=== PATIENT | female | born 1980 | race Caucasian/White ===

== ENCOUNTER 2019-08-25 09:08 | Outpatient (CLI) | payer OTHER, SELFPAY ==
--- NOTE | ~2019-08-25 | XR_ITS ---
EXAMINATION: XR chest 2V 08/25/2019 09:22 INDICATION: Cough and shortness of breath PROCEDURE: 2 view chest COMPARISON: 02/16/2017 FINDINGS: The lungs are clear. The cardiomediastinal silhouette is within normal limits. There are no pleural effusions. There is no pneumothorax suspected. IMPRESSION: 1: NO ACUTE CARDIOPULMONARY DISEASE. Reviewed, dictated and finalized at location A.
== END 2019-08-25 09:09 | disposition home or self-care (01) ==
PROVIDERS: PCP Family Medicine; Visit Provider Family Medicine
DX: R05 Cough (principal); R06.02 Shortness of breath
CPT/HCPCS: 71046

== ENCOUNTER 2020-03-21 08:09 | Emergency (ER) | payer SELFPAY ==
--- NOTE | ~2020-03-21 | XR_ITS ---
XR wrist LT min 3V 03/21/2020 08:26 Indication: Left wrist pain after fall Procedure: 4 views left wrist Comparison: 06/06/2017 Findings: There is a possible nondisplaced distal radial fracture. Mild soft tissue swelling. No fore ign bodies. Carpal bones are intact. No other fracture is identified. Impression: 1: Possible nondisplaced distal radial fracture. Reviewed, dictated and finalized at location B. METER ENGINEER Impression: 1: Possible nondisplaced distal radial fracture.
[2020-03-21 08:15] VITALS: BP 108/74; PULSE 90; RESP 12; TEMP 36.6; O2SAT 100
--- NOTE | 2020-03-21 08:21 | ED.UPPEXIN ---
HPI - Extremity Injury (Upper) General Chief Complaint: Extremity Injury, Upper Stated Complaint: lt hand injury Time Seen by Provider: 03/21/20 08:21 Source: patient and RN notes reviewed Mode of arrival: ambulatory Limitations: no limitations History of Present Illness HPI narrative: 39-year-old female presents with concern for left wrist pain. Reports yesterday she fell while trying to put on a pair of boots, is unsure how she landed, but recalls immediate pain to the wrist. Reports swelling. Reports using Tylenol and ibuprofen, ice, immobilization with no relief. MD complaint: injury to: left and hand Related Data Home Medications Medication Instructions Recorded Confirmed clonazepam 1 mg tablet 1 mg PO TID PRN tablet 08/18/19 03/21/20 paroxetine HCl 20 mg tablet 20 mg PO DAILY 08/18/19 03/21/20 quetiapine 300 mg PO HS 03/21/20 03/21/20 Allergies Allergy/AdvReac Type Severity Reaction Status Date / Time doxycycline AdvReac Vomiting Verified 03/21/20 08:21 Review of Systems Review of Systems: Narrative: CONSTITUTIONAL: Denies malaise, chills, sweats, or fever. CARDIOVASCULAR: Denies chest pain, palpitations RESPIRATORY: Denies cough or dyspnea. SKIN: Denies open skin, laceration, abrasion MUSCULOSKELETAL: Reports right wrist pain and swelling NEUROLOGIC: Denies numbness, weakness All systems reviewed & are unremarkable except as noted in HPI and below PMFSH Social History Social History (Updated 08/18/19 @ 09:26 by Maryam Peterson) Smoking status: Never smoker Second hand tobacco smoke exposure: Yes Alcohol intake: never Substance use: never Substance use type: does not use Gender identity (if verbalized by the patient): Female Comments At time of signature, agree with nursing past medical, surgical, social and family history. There is no relevant family history pertinent to the presenting complaint Exam Narrative: Exam Narrative: GENERAL: Well-appearing, well-nourished, and in no acute distress. HEAD: Normocephalic EYES: PERRLA, conjunctivae clear NECK: Supple. CHEST: Speaks in full sentences. No respiratory distress. HEART: Regular rate and rhythm. Normal and equal peripheral pulses. EXTREMITIES: Left hand and digits of hand have normal strength and sensation. 5/5 strength with digit flexion, extension. Range of motion normal. No clubbing, cyanosis, or edema noted. No tenderness. Skin intact. Normal digital cascade with flexion of fingers, median, ulnar and radial nerve intact. Normal sensation of each side of finger. Can perform 'okay' sign, 'cross over finger test of index and middle fingers' and 'thumbs up' sign. No scissoring. Normal thumb opposition. Good capillary refill and radial pulse. Distal capillary refill less than 3 seconds. Moderate edema to left wrist, radial head tenderness, no ecchymosis or erythema, no induration SKIN: Warn, dry, intact, pink. No rash NEURO: Alert and oriented x3. PSYCH: Normal mood and affect Course Course Emergency Course: Patient is aware of diagnosis, understands and agrees to treatment plan. Anticipatory guidance given. Patient agrees to follow-up as directed and is aware of reasons to seek care at the emergency department. Portions of this record may have been created with voice recognition software Vital Signs Vital signs: Vital Signs Temperature 97.8 F 03/21/20 08:15 Pulse Rate 90 03/21/20 08:15 Respiratory Rate 12 03/21/20 08:15 Blood Pressure 108/74 03/21/20 08:15 Pulse Oximetry 100 03/21/20 08:15 Temperature 97.8 F 03/21/20 08:15 Pulse Rate 90 03/21/20 08:15 Respiratory Rate 12 03/21/20 08:15 Blood Pressure 108/74 03/21/20 08:15 Pulse Oximetry 100 03/21/20 08:15 Reviewed. MDM - Extremity Injury (Upper) MDM Narrative Medical decision making narrative: Patients injury and pain is consistent with musculoskeletal etiology. No signs of neurological or vascular compromise on exam. Compartments and ti
== END 2020-03-21 09:05 | disposition home or self-care (01) ==
PROVIDERS: Emergency Provider Nurse Practitioner; PCP Family Medicine
DX: S52.502A Unspecified fracture of the lower end of left radius, initial encounter for closed fracture (principal); W19.XXXA Unspecified fall, initial encounter; F41.9 Anxiety disorder, unspecified
CPT/HCPCS: 29125; 73110; 99214; A4565; G0463

== ENCOUNTER 2021-04-05 12:34 | Inpatient (IN) | payer MEDICAID, SELFPAY ==
--- NOTE | ~2021-04-05 | XR_ITS ---
EXAMINATION: XR chest 1V portable DATE: 04/08/2021 10:45 INDICATION: Cough. TECHNIQUE: A single frontal view of the chest was obtained. COMPARISON: Chest 2 views 08/25/2019, CT abdomen and pelvis 04/05/2021 FINDINGS: The chest demonstrates clear lungs without pneumonia, pleural effusion, or pneumothorax. Th e heart size is normal. Surgical clips in the right upper quadrant are likely from cholecystectomy. IMPRESSION: 1. No acute cardiopulmonary disease. Reviewed, dictated and finalized at location A. S FORCE DEVELOPER
--- NOTE | ~2021-04-05 | XR_ITS ---
XR chest 2V DATE: 04/12/2021 10:11 INDICATION: Pleuritic pain TECHNIQUE: PA and lateral views COMPARISON: 04/08/2021 portable AP chest FINDINGS: Normal heart size. No hilar or mediastinal enlargement. No pulmonary infiltrate or consolid ation, pleural effusion or pulmonary vascular congestion or pneumothorax. Status post cholecystectomy. Included skeletal structures are unremarkable. IMPRESSION: No active cardiopulmonary disease Status post cholecystectomy Reviewed, dictated and finalized at location B. PRESSURE KETTLE OPERATOR
--- NOTE | ~2021-04-05 | CT_ITS ---
EXAMINATION: CT abdomen pelvis w con DATE: 04/05/2021 18:14 INDICATION: Left flank pain. Burning with urination. TECHNIQUE: Computed tomography (CT) of the abdomen and pelvis was performed with 100 cc Omnipaque 350 intravenous contrast. The dose-length product was 418.15 mGy-cm. Automated exposure control and iter ative reconstruction technique were employed. COMPARISON: CT dated 07/11/2017 FINDINGS: Lung bases are unremarkable. Heart size normal. No significant pleural or pericardial effus ion. No significant vascular abnormality. There is mild bilateral inguinal lymphadenopathy, largest l eft inguinal lymph node measures 1.8 x 1.3 cm. The liver contains a stable 12 mm hemangioma anterior to the intrahepatic IVC. There is splenomegaly. The pancreas, adrenal glands and kidneys are unremarkable. No ureteral stones or hydronephrosis. Aníbal dder is unremarkable. Status post cholecystectomy. Nonobstructive bowel gas pattern. The appendix is likely surgically absent. No abnormal pelvic masses or fluid collections. No free air or free fluid. IMPRESSION: 1. No acute abdominal abnormality. 2: Mild bilateral inguinal lymphadenopathy, likely reactive. Reviewed, dictated and finalized at location A. ER SKATE REPAIRER
--- NOTE | ~2021-04-05 | US_ITS ---
EXAMINATION: US renal BI EXAM DATE: 04/06/2021 08:51 INDICATION: Left flank pain TECHNIQUE: Multiple grayscale and Doppler images of the kidneys were obtained (by a technologist who performed the scan) and subsequently reviewed. There is no prior study for comparison. FINDINGS: Right kidney: There is normal contour and echogenicity. It measures 9.4 x 4.6 x 4.4 centimeters. Th ere are no focal renal lesions identified. There is no hydronephrosis. Left kidney: There is normal contour and echogenicity. It measures 10.6 x 3.9 x 4.2 centimeters. Th ere are no focal renal lesions identified. There is no hydronephrosis. Bladder unremarkable. IMPRESSION: 1. Sonographically unremarkable kidneys. Reviewed, dictated and finalized at location B. ATRIC ONCOLOGY NURSE
--- NOTE | ~2021-04-05 | CT_ITS ---
EXAMINATION: CT brain wo con DATE: 04/08/2021 13:37 INDICATION: Headache. TECHNIQUE: Computed tomography (CT) of the head was performed without intravenous contrast. The mA wa s adjusted according to patient size. Iterative reconstruction technique was employed. The dose-lengt h product was 605.33 mGy-cm. COMPARISON: None FINDINGS: There is no intracranial hemorrhage, acute infarction, or abnormal intracranial mass lesion . The ventricles are normal in size. There is mild mucosal thickening in the paranasal sinuses. The m astoid air cells are normal. The orbits are normal. IMPRESSION: 1. Normal brain. Reviewed, dictated and finalized at location A. ICE OR WORK DISPATCHER CHIEF IMPRESSION: 1. Normal brain.
--- NOTE | ~2021-04-05 | US_ITS ---
EXAMINATION: US right upper quadrant DATE: 04/06/2021 08:52 INDICATION: Right upper quadrant pain TECHNIQUE: Multiple grayscale and Doppler ultrasound images of the abdomen were obtained. COMPARISON: 04/05/2021 FINDINGS: The head, body, and tail of the pancreas are normal. The liver is normal with normal echoge nicity and echotexture. No surface nodularity. Normal hepatopetal flow in the main portal vein. The g allbladder is absent. The normal common bile duct measures 3 mm. IMPRESSION: 1. No sonographic correlate for the patient's symptoms. Reviewed, dictated and finalized at location A. INUOUS WASHER OPERATOR
[2021-04-05 12:44] VITALS: BP 127/92; PULSE 110; RESP 16; TEMP 37.2; O2SAT 99
[2021-04-05 14:59] VITALS: BP 123/85; PULSE 116; O2SAT 98
--- NOTE | 2021-04-05 17:00 | ED.FEMALEGU ---
HPI - Female Genitourinary General Chief complaint: Urogenital-Female Stated complaint: low back pain/burning with urination Time Seen by Provider: 04/05/21 16:39 Source: patient Mode of arrival: ambulatory Limitations: no limitations History of Present Illness HPI Narrative: This is a 40 year old female that presents to the ER for left flank pain x 3 days. Associated with fever, dysuria, abdominal pain, nausea and vomiting. Reports she has seen some blood on the tissue when she wipes. Denies chest pain, or shortness of breath. Related Data Home Medications Medication Instructions Recorded Confirmed clonazepam 1 mg tablet 1 mg PO TID PRN tablet 08/18/19 03/23/20 paroxetine HCl 20 mg tablet 20 mg PO DAILY 08/18/19 03/23/20 quetiapine 300 mg PO HS 03/21/20 03/23/20 lorazepam [Ativan] 2 mg PO BID PRN 04/05/21 04/05/21 quetiapine [Seroquel] 200 mg PO HS 04/05/21 04/05/21 Allergies Allergy/AdvReac Type Severity Reaction Status Date / Time doxycycline AdvReac Vomiting Verified 04/05/21 20:53 Review of Systems Review of Systems: CONSTITUTIONAL: Reports fever CARDIOVASCULAR: Denies chest pain RESPIRATORY: Denies dyspnea. GASTROINTESTINAL: Reports abdominal pain, nausea, vomiting GENITOURINARY: Reports dysuria. Denies hematuria. All systems reviewed & are unremarkable except as noted in HPI and below PMFSH Past Medical History Medical History (Updated 04/05/21 @ 20:52 by Ana Paula Tinajero PA-C) Cough History of pancreatitis (~2014) Malaise Nondisplaced fracture of distal end of right radius SOB (shortness of breath) Surgical History Surgical History History of appendectomy (~1999) History of cholecystectomy (~2013) Hx of tonsillectomy (~1987) Social History Social History Smoking status: Never smoker Second hand tobacco smoke exposure: Yes Alcohol intake: never Substance use: never Substance use type: does not use Gender identity (if verbalized by the patient): Female Exam Narrative: GENERAL: Well-appearing, well-nourished, and in no acute distress. HEAD: Normocephalic, atraumatic. EYES: EOMI. CHEST: Clear to auscultation. No respiratory distress. No wheezes rales or rhonchi HEART: Regular rate and rhythm. No murmur heard. Normal peripheral pulses. ABDOMEN: Soft, nondistended, normal active bowel sounds. Tender to palpation in the LLQ, without guarding. Left sided CVA tenderness EXTREMITIES: Normal range of motion. No edema. SKIN: Warm, dry, no rash. NEURO: No focal deficits. Alert and oriented x3. PSYCH: Normal mood and affect Course Consultations Consultation #1: Spoke with hospitalist about patient and workup who accepts admission Date: 04/05/21 Time: 20:02 Vital Signs Vital signs: Vital Signs Temperature 98.9 F 04/05/21 12:44 Pulse Rate 110 H 04/05/21 12:44 Respiratory Rate 16 04/05/21 12:44 Blood Pressure 127/92 H 04/05/21 12:44 Pulse Oximetry 99 04/05/21 12:44 Temperature 99.8 F H 04/05/21 17:45 Pulse Rate 91 04/05/21 18:33 Respiratory Rate 17 04/05/21 18:33 Blood Pressure 113/63 04/05/21 18:33 Pulse Oximetry 99 04/05/21 18:33 MDM - Female Genitourinary MDM Narrative Medical decision making narrative: Patient presents to the emergency department for left flank pain present over the last 3 days. Associated with fever, nausea and vomiting. Mildly tachycardic upon arrival, afebrile. Vitals are stable. CBC is without leukocytosis. Metabolic panel significant for transaminitis. Alk phos also elevated to 299. Lipase is normal. Hepatitis panel was sent. Bedside test is negative. CT scan of the abdomen and pelvis without acute findings. Patient will be admitted for further treatment of pyelonephritis with IV antibiotics. I did speak with Dr. Cannon about transaminitis. Would like hepatitis panel ordered. Spoke with hospitalist
[2021-04-05 17:23] LABS: Basophils Percent Auto 0.1 % (0.2-1.2); Hematocrit 39.6 % (37.0-47.0); Hemoglobin 13.7 g/dL (12.0-15.0); Immature Granulocyte Absolute 0.01 K/mm3 (0.00-0.031); Immature Granulocyte Percent A 0.1 % (0-0.5); Lymphocytes Absolute Auto 1.11 K/mm3 (0.9-3.2); Lymphocytes Percent Auto 16.1 % (18.3-44.2); Mean Corpuscular HGB Conc 34.6 g/dl (32-36); Mean Corpuscular Hemoglobin 31.8 pg (26-34); Mean Corpuscular Volume 91.9 fl (80-100); Mean Platelet Volume 9.8 fl (7.4-10.4); Monocytes Absolute Auto 0.5 K/mm3 (0.1-0.6); Monocytes Percent Auto 6.7 % (2.6-8.5); Neutrophils Absolute Auto 5.3 K/mm3 (1.3-6.7); Platelet Count Result 257 k/mm3 (150-375); Red Blood Count 4.31 M/mm3 (4.2-5.4); Red Cell Distribution Width 13.9 % (11.5-14.5); White Blood Count 6.9 K/mm3 (4.5-10.0)
[2021-04-05] MEDS: SODIUM CHLORIDE 0.9% IV 1,000 ML 999 ML IV CONT (17:28)
[2021-04-05 17:33] LABS: Alanine Aminotransferase 525 U/L (4-35); Alkaline Phosphatase 299 U/L (38-126); Anion Gap 10 mmol/L (8-16); Aspartate Amino Transferase 350 U/L (14-36); Bilirubin,Total 0.9 mg/dL (0.2-1.3); Blood Urea Nitrogen 8 mg/dL (7-17); Calcium 9.5 mg/dL (8.4-10.2); Carbon Dioxide 22 mmol/L (22-30); Chloride 102 mmol/L (98-107); Estimated CRCL calculation 69 ml/min; Estimated Glomerular Filt Rate > 60; Glucose 103 mg/dL (65-110); Lipase 45 U/L (23-300); Potassium 3.6 mmol/L (3.4-5.0); Sodium 134 mmol/L (137-145)
[2021-04-05 17:38] LABS: Add Urine Microscopic? YES; Appearance Urine Cloudy (Clear); Bacteria Urine Trace /hpf; Bilirubin Urine Negative (Negative); Blood Urine 1+ (Negative); Color Urine Yellow (Yellow); Glucose Urine UA Negative (Negative); Ketones Urine Negative (Negative); Leukocyte Esterase Ur 3+ LEU/UL (Negative); Mucus Urine Rare /lpf; Nitrate Urine Negative (Negative); Protein Urine 2+ mg/dL (Negative); RBC Urine >75 /hpf (0-2); Specific Grav Ur 1.015 (1.001-1.035); Squamous Epithelial Cell Urine Many /hpf (Few); Urobilinogen Urine Negative mg/dL (<2.0); WBC Urine >75 /hpf
[2021-04-05 17:45] VITALS: BP 112/72; PULSE 98; RESP 16; TEMP 37.7; O2SAT 98
[2021-04-05 18:33] VITALS: BP 113/63; PULSE 91; RESP 17; O2SAT 99
[2021-04-05] MEDS: ONDANSETRON INJ 4 MG/2 ML VIAL IV PUSH (18:56)
[2021-04-05] MEDS: KETOROLAC 30 MG/ML VIAL (*BKC) IV PUSH (18:56)
[2021-04-05 20:50] VITALS: BP 98/70; PULSE 82; RESP 12; O2SAT 100
[2021-04-05] MEDS: SODIUM CHLORIDE 0.9% IV 1,000 ML 125 ML IV CONT (20:51)
[2021-04-05 21:11] LABS: Hepatitis B Surface Antigen Negative (Negative)
[2021-04-05 21:17] LABS: HAV RESULT Negative (Negative); Hepatitis B Core IgM Result Negative (Negative)
[2021-04-05 21:28] LABS: Hepatitis C Virus Antibody Negative (Negative)
[2021-04-05] MEDS: LORazepam INJ (*CRX) 2 MG/ML VIAL 1 MG IV PUSH (21:30)
[2021-04-05] MEDS: QUEtiapine FUMARATE 100 MG TABLET 200 MG PO (22:45)
--- NOTE | 2021-04-05 23:53 | PC.NURSE ---
This patient, Melissa Hebert, was admitted to 3 [facility] Surg Room 316-01 @2340. Patient/family oriented to hospital policies and general routines including ID bracelet, bed and alarms, visiting hours, pain management, procedures, bathroom and other care routines, personal items, smoking policy, room service/diet, and visiting hours. Information on how to activate the Rapid Response Team has been discussed. Patient/Family are encouraged to report perceived risks to care and to ask questions if they do not understand what they are told or what they should do.
[2021-04-06 00:02] VITALS: BP 104/71; PULSE 75; RESP 18; TEMP 36.8; O2SAT 97; BMI 27.6
[2021-04-06 00:03] VITALS: BMI 27.6
[2021-04-06] MEDS: KETOROLAC 30 MG/ML VIAL (*BKC) 15 MG IV PUSH (01:31)
[2021-04-06] MEDS: SODIUM CHLORIDE 0.9% IV 1,000 ML 125 ML IV CONT ×3 (05:19→20:22)
[2021-04-06 05:27] VITALS: BP 110/78; PULSE 85; RESP 18; TEMP 36.6; O2SAT 93
--- NOTE | 2021-04-06 05:58 | PM.IMHP ---
H&P: HPI History of Present Illness Date/Time: 04/06/21 05:58 Chief Complaint: Fever abdominal pain Narrative: This is a 40 year old female that presents to the ER for left flank pain x 4 days there is associated fever dysuria and lower abdominal and left-sided abdominal pain. Also associated nausea and vomiting and not feeling well. She went to urgent care yesterday with the symptoms and was referred to the hospital for further evaluation. She denies any chest pain cough or shortness of breath. Was tachycardic upon arrival but afebrile. CBC with normal WBC count normal BMP bedside test was negative. Lipase came back neck and normal liver panel showed transaminitis with elevated alkaline phosphatase of 229. CT abdomen and pelvis however did not show any acute findings however clinically she was diagnosed with pyelonephritis and hands the getting admitted for IV antibiotic therapy. Review of Systems Review of Systems: - CONSTITUTIONAL: Denies weight loss, reports fever and chills. - HEENT: Denies changes in vision and hearing - RESPIRATORY: Denies SOB and cough. - CV: Denies palpitations and CP. - GI: Reports abdominal pain, nausea, vomiting and denies diarrhea. - : Reports dysuria and urinary frequency. - MSK: Denies myalgia and joint pain. - SKIN: Denies rash and pruritus. - NEUROLOGICAL: Denies headache and syncope. - PSYCHIATRIC: Denies recent changes in mood. Denies anxiety and depression. All systems reviewed & are unremarkable except as noted in HPI and below Constitutional: Constitutional: Reports fatigue and Reports weakness Neurologic: Reports weakness Endocrine: Endocrine: Reports fatigue COUNTS INCLUDE 234 BEDS AT THE [facility] Past Medical History Medical History (Updated 04/06/21 @ 06:04 by Reza Mccauley MD) Cough History of pancreatitis (~2014) Malaise Nondisplaced fracture of distal end of right radius SOB (shortness of breath) Surgical History Surgical History History of appendectomy (~1999) History of cholecystectomy (~2013) Hx of tonsillectomy (~1987) Social History Social History Smoking status: Never smoker Second hand tobacco smoke exposure: Yes Alcohol intake: never Substance use: former Substance use type: marijuana Other substance usage details: irregular use Gender identity (if verbalized by the patient): Female Spiritual care concerns: No Meds Home Medications and Allergies Home Medications Medication Instructions Recorded Confirmed Type clonazepam 1 mg tablet 1 mg PO TID PRN tablet 08/18/19 04/06/21 History paroxetine HCl 20 mg tablet 20 mg PO DAILY 08/18/19 04/06/21 History ibuprofen 800 mg PO Q6H PRN #30 tablet 03/21/20 04/06/21 Rx lorazepam [Ativan] 2 mg PO BID PRN 04/05/21 04/06/21 History quetiapine [Seroquel] 200 mg PO HS 04/05/21 04/06/21 History Allergies Allergy/AdvReac Type Severity Reaction Status Date / Time doxycycline AdvReac Vomiting Verified 04/06/21 00:15 Vital Signs Vital Signs - 24 hr 04/05/21 12:44 04/05/21 14:59 04/05/21 17:45 Temperature 98.9 F 99.8 F H Pulse Rate 110 H 116 H 98 Respiratory Rate 16 16 Blood Pressure 127/92 H 123/85 112/72 Pulse Oximetry 99 98 98 04/05/21 18:33 04/05/21 20:50 04/06/21 00:02 Temperature 98.3 F Pulse Rate 91 82 75 Respiratory Rate 17 12 18 Blood Pressure 113/63 98/70 L 104/71 Pulse Oximetry 99 100 97 04/06/21 05:27 Temperature 97.8 F Pulse Rate 85 Respiratory Rate 18 Blood Pressure 110/78 Pulse Oximetry 93 Exam Narrative: GENERAL: Ill-looking, thin built, not in acute distress. HEAD: Normocephalic, atraumatic. EYES: EOMI. CHEST: Clear to auscultation. No respiratory distress. No wheezes rales or rhonchi HEART: Regular rate and rhythm. No murmur heard. Normal peripheral pulses. ABDOMEN: Soft, nondistended, hypoactive bowel sounds. Tender to palpation in
[2021-04-06] MEDS: HYDROmorphone HCL INJ (*CRX) 1 MG/ML SYR 0.5 MG IV PUSH ×5 (06:22→20:14)
[2021-04-06 07:03] LABS: Eosinophils Percent Auto 0.8 % (0-4.4); Hematocrit 33.9 % (37.0-47.0); Hemoglobin 11.3 g/dL (12.0-15.0); Immature Granulocyte Absolute 0.01 K/mm3 (0.00-0.031); Immature Granulocyte Percent A 0.4 % (0-0.5); Lymphocytes Percent Auto 22.6 % (18.3-44.2); Mean Corpuscular HGB Conc 33.3 g/dl (32-36); Mean Corpuscular Volume 93.1 fl (80-100); Mean Platelet Volume 9.4 fl (7.4-10.4); Monocytes Absolute Auto 0.3 K/mm3 (0.1-0.6); Monocytes Percent Auto 12.1 % (2.6-8.5); Neutrophils Absolute Auto 1.7 K/mm3 (1.3-6.7); Neutrophils Percent Auto 64.1 % (45.5-73.1); Platelet Count Result 157 k/mm3 (150-375); Red Blood Count 3.64 M/mm3 (4.2-5.4); Red Cell Distribution Width 14.2 % (11.5-14.5); White Blood Count 2.7 K/mm3 (4.5-10.0)
[2021-04-06 07:13] LABS: Alanine Aminotransferase 393 U/L (4-35); Albumin Level 3.5 g/dL (3.5-5.1); Alkaline Phosphatase 216 U/L (38-126); Anion Gap 11 mmol/L (8-16); Aspartate Amino Transferase 330 U/L (14-36); Bilirubin,Total 1.1 mg/dL (0.2-1.3); Blood Urea Nitrogen 7 mg/dL (7-17); Carbon Dioxide 22 mmol/L (22-30); Chloride 107 mmol/L (98-107); Estimated CRCL calculation 88 ml/min; Estimated Glomerular Filt Rate > 60; Glucose 91 mg/dL (65-110); Potassium 3.4 mmol/L (3.4-5.0); Sodium 140 mmol/L (137-145)
[2021-04-06 07:24] LABS: Acetaminophen < 10 ug/mL (10-30); Salicylate < 1.0 mg/dL (2-20)
[2021-04-06] MEDS: ONDANSETRON HCL ODT 4 MG TABLET PO (09:20)
[2021-04-06] MEDS: PARoxetine 20 MG TABLET PO (09:20)
[2021-04-06] MEDS: LORazepam (*CRX) 1 MG TABLET 2 MG PO (09:29)
--- NOTE | 2021-04-06 13:54 | PM.IMPN ---
Progress Note: A&P Assessment and Plan (1) Pyelonephritis: Code(s): N12 - Tubulo-interstitial nephritis, not specified as acute or chronic Status: Acute Assessment and Plan: Clinical diagnosis of pyelonephritis due to significant abdominal pain with UTI however not noted on imaging -continue ceftriaxone, await urine culture -continue IV fluids due to continuous vomiting -blood cultures were not ordered on admission, will order -abdominal pelvis CT, renal ultrasound, and right upper quadrant ultrasound shows no abnormalities -await urine culture and adjust medications as indicated -will add Pyridium for pain -patient states she is not sexually active and has no vaginal irritation or pain. Last menstrual period earlier this month. (2) Transaminitis: Code(s): R74.01 - Elevation of levels of liver transaminase levels Status: Acute Assessment and Plan: Likely due to acute illness -CT of the abdomen pelvis and right upper quadrant ultrasound does not show any abnormalities -patient continues to have nausea vomiting but I suspect this is due to above -if the UTI improves and the patient still has continuous nausea vomiting may consider a HIDA scan although I do not think this will be necessary -hepatitis screen negative (3) Sepsis: Code(s): A41.9 - Sepsis, unspecified organism Status: Acute Assessment and Plan: Secondary to UTI with evidence of hypotension and tachycardia -blood cultures were not ordered on admission, will order -continue ceftriaxone (4) Anxiety: Code(s): F41.9 - Anxiety disorder, unspecified Status: Acute Assessment and Plan: Will transition Ativan oral to IV while she is vomiting -continue Seroquel -check EKG for QTC since she required Zofran as well (5) Nausea & vomiting: Code(s): R11.2 - Nausea with vomiting, unspecified Status: Acute Assessment and Plan: As above -will try scopolamine patch (6) Leukopenia: Code(s): D72.819 - Decreased white blood cell count, unspecified Status: Acute Assessment and Plan: Likely due to above illness -viral etiology seems less likely but only may be considered if her liver enzymes do not improve with UTI treatment Time Spent With Patient Time with patient: 25 - 35 minutes Subjective Date/time seen: 04/06/21 13:54 Interval history: Pt is a 40-year-old female here for significant UTI and sepsis. Patient was seen today and states she does not feel well. She throws up everything that she eats and she continues to have left-sided abdominal pain. She has no diarrhea, constipation, shortness of breath, cough or leg swelling. She says that she has significant anxiety and is not able to keep her medications down. When she has anxiety she has chest pain that is achy in the middle of her chest. This happens when she throws up or when she gets really anxious and then goes away. This is not a new thing for her. She is usually typically active without chest pain during exercise etc Review of Systems Review of Systems: All systems reviewed & are unremarkable except as noted in HPI and below Exam Narrative: General: Well developed well nourished patient in NAD HEENT: normocephalic Neck: supple Neuro: Alert and oriented x4 CV:RRR Resp:CTA Abd: Soft, non distended. Pain to palpation worse to the left flank and left lower quadrant. Positive bowel sounds Extremities: No swelling, erythema, or pain to palpation. Objective Data Vital Signs Vital Signs: Vital Signs - 24 hr 04/05/21 14:59 04/05/21 17:45 04/05/21 18:33 Temperature 99.8 F H Pulse Rate 116 H 98 91 Respiratory Rate 16 17 Blood Pressure 123/85 112/72 113/63 Pulse Oximetry 98 98 99 04/05/21 20:50 04/06/21 00:02 04/06/21 05:27 Temperature 98.3 F 97.8 F Pulse Rate 82 75 85 Respiratory Rate 12 18 18 Blood Pressure 98/70 L 104/71 110/78 Pulse Oximetry 100 97
[2021-04-06 14:00] VITALS: BP 107/73; PULSE 99; RESP 16; TEMP 36.8; O2SAT 97
--- NOTE | 2021-04-06 14:04 | ECG_ITS ---
Measurements Intervals [place] Rate: 87 P: 49 WI: 168 QRS: 84 QRSD: 82 T: 61 QT: 393 QTc: 475 Interpretive Statements SINUS RHYTHM LOW QRS VOLTAGE IN PRECORDIAL LEADS BORDERLINE ECG Electronically Signed On 04-06-2021 15:50:03 DRAFTER TOOL DESIGN by Marcellus Vasquez D.O.
[2021-04-06 14:33] LABS: Lactic Acid Reflex 0.6 mmol/L (0.7-2.1)
[2021-04-06 14:36] LABS: CRP 1.5 mg/dL (<1.0)
[2021-04-06] MEDS: SCOPOLAMINE 1.5 MG PATCH TRANSDERM (15:01)
[2021-04-06] MEDS: PANTOPRAZOLE SODIUM IV 40 MG VIAL IV PUSH (15:47)
[2021-04-06] MEDS: LORazepam INJ (*CRX) 2 MG/ML VIAL IV PUSH (15:47)
[2021-04-06] MEDS: PHENAZOPYRIDINE HCL 100 MG TABLET 200 MG PO (17:02)
[2021-04-06] MEDS: QUEtiapine FUMARATE 100 MG TABLET 200 MG PO (20:13)
[2021-04-06 22:00] VITALS: BP 110/56; PULSE 110; RESP 18; TEMP 36.7; O2SAT 95
[2021-04-07] MEDS: HYDROmorphone HCL INJ (*CRX) 1 MG/ML SYR 0.5 MG IV PUSH ×6 (02:27→19:55)
[2021-04-07] MEDS: LORazepam INJ (*CRX) 2 MG/ML VIAL IV PUSH ×3 (03:25→19:50)
[2021-04-07] MEDS: SODIUM CHLORIDE 0.9% IV 1,000 ML 125 ML IV CONT ×3 (03:25→19:55)
[2021-04-07 05:57] VITALS: BP 101/60; PULSE 98; RESP 18; TEMP 36.9; O2SAT 94
[2021-04-07 07:16] LABS: Alanine Aminotransferase 404 U/L (4-35); Albumin Level 3.5 g/dL (3.5-5.1); Alkaline Phosphatase 304 U/L (38-126); Anion Gap 9 mmol/L (8-16); Aspartate Amino Transferase 373 U/L (14-36); Bilirubin,Total 1.1 mg/dL (0.2-1.3); Blood Urea Nitrogen 3 mg/dL (7-17); Calcium 8.1 mg/dL (8.4-10.2); Carbon Dioxide 23 mmol/L (22-30); Chloride 103 mmol/L (98-107); Estimated CRCL calculation 102 ml/min; Estimated Glomerular Filt Rate > 60; Glucose 97 mg/dL (65-110); Potassium 3.6 mmol/L (3.4-5.0); Sodium 135 mmol/L (137-145)
[2021-04-07 07:25] LABS: Hematocrit 32.7 % (37.0-47.0); Hemoglobin 10.8 g/dL (12.0-15.0); Immature Granulocyte Absolute 0.01 K/mm3 (0.00-0.031); Immature Granulocyte Percent A 0.3 % (0-0.5); Lymphocytes Percent Auto 24.9 % (18.3-44.2); Mean Corpuscular Hemoglobin 30.6 pg (26-34); Mean Corpuscular Volume 92.6 fl (80-100); Mean Platelet Volume 9.8 fl (7.4-10.4); Monocytes Absolute Auto 0.3 K/mm3 (0.1-0.6); Monocytes Percent Auto 7.2 % (2.6-8.5); Neutrophils Absolute Auto 2.5 K/mm3 (1.3-6.7); Neutrophils Percent Auto 67.6 % (45.5-73.1); Platelet Count Result 176 k/mm3 (150-375); Red Blood Count 3.53 M/mm3 (4.2-5.4); Red Cell Distribution Width 14.2 % (11.5-14.5); White Blood Count 3.6 K/mm3 (4.5-10.0)
[2021-04-07] MEDS: IBUPROFEN 400 MG TABLET 800 MG PO (08:33)
[2021-04-07] MEDS: PHENAZOPYRIDINE HCL 100 MG TABLET 200 MG PO ×3 (08:33→16:49)
[2021-04-07] MEDS: PANTOPRAZOLE SODIUM IV 40 MG VIAL IV PUSH (08:34)
[2021-04-07] MEDS: PARoxetine 20 MG TABLET PO (08:34)
[2021-04-07 12:06] VITALS: BMI 27.6
--- NOTE | 2021-04-07 12:26 | PM.IMPN ---
Progress Note: A&P Assessment and Plan (1) Pyelonephritis: Code(s): N12 - Tubulo-interstitial nephritis, not specified as acute or chronic Status: Acute Assessment and Plan: Clinical diagnosis of pyelonephritis due to significant abdominal pain with UTI however not noted on imaging -continue ceftriaxone, await urine culture -continue IV fluids due to continuous vomiting -blood cultures were not ordered on admission, will order -abdominal pelvis CT, renal ultrasound, and right upper quadrant ultrasound shows no abnormalities -await urine culture and adjust medications as indicated (2) Transaminitis: Code(s): R74.01 - Elevation of levels of liver transaminase levels Status: Acute Assessment and Plan: Likely due to acute illness GI consult Patient had cholecystectomy Bilateral pain is not elevated goes against obstructive bile duct disease -CT of the abdomen pelvis and right upper quadrant ultrasound does not show any abnormalities -probable tick-borne disease added doxycycline patient has reaction in the past from doxycycline with vomiting I discussed with the patient in detail will give Zofran ordered Lyme disease and ehrlichiosis titer (3) Sepsis: Code(s): A41.9 - Sepsis, unspecified organism Status: Acute Assessment and Plan: Secondary to UTI possible tick-borne disease with evidence of hypotension and tachycardia -follow-up blood culture -continue ceftriaxone doxycycline (4) Anxiety: Code(s): F41.9 - Anxiety disorder, unspecified Status: Acute Assessment and Plan: Will transition Ativan oral to IV while she is vomiting -continue Seroquel l (5) Nausea & vomiting: Code(s): R11.2 - Nausea with vomiting, unspecified Status: Acute Assessment and Plan: As above -will try scopolamine patch (6) Leukopenia: Code(s): D72.819 - Decreased white blood cell count, unspecified Status: Acute Assessment and Plan: Likely due to above illness -viral etiology seems less likely but only may be considered if her liver enzymes do not improve with UTI treatment Subjective Date/time seen: 04/07/21 12:26 Interval history: Patient seen and examined Patient presented to the hospital with abdominal pain fever dysuria headache denies photophobia or neck rigidity patient [place] to the [place] and she walks her dog daily in the area patient denies tick bites Patient feels weak still complains of nausea abdominal pain Patient denies fever headache chest pain shortness of breath I am seeing the patient for abdominal pain Exam Narrative: Alert Chest no wheeze crackles Abdomen generalized tenderness no rebound no guarding Neck No neck stiffness CVS S1 + S2 Neuro exam nonfocal Lower extremity edema Objective Data Vital Signs Vital Signs: Vital Signs - 24 hr 04/06/21 14:00 04/06/21 22:00 04/07/21 05:57 Temperature 98.3 F 98.0 F 98.5 F Pulse Rate 99 110 H 98 Respiratory Rate 16 18 18 Blood Pressure 107/73 110/56 L 101/60 Pulse Oximetry 97 95 94 Intake/Output Intake/Output: Intake & Output 04/04/21 04/05/21 04/06/21 04/07/21 23:59 23:59 23:59 23:59 Intake Total 1150 3730 2450 Output Total 400 Balance 1150 3730 2050 Meds/Results Medications: Active Medications Generic Name Dose Route Start Last Admin Trade Name Freq PRN Reason Stop Dose Admin Hydromorphone HCl 0.5 mg 04/06/21 06:02 04/07/21 09:00 Hydromorphone Hcl Inj (*Crx) 1 Mg/Ml Syr IV PUSH 0.5 mg Q3H PRN Administration Pain Rated 7-10 Sodium Chloride 1,000 mls @ 125 mls/hr 04/05/21 20:35 04/07/21 10:59 Normal Saline Iv IV CONT 125 mls/hr .Q8H PIYUSH Administration Ceftriaxone Sodium/Dextrose 1 gm in 50 mls @ 100 mls/hr 04/06/21 18:00 04/06/21 17:35 Rocephin 1 Gm/D5w 50 Ml IVPB Infused Q24H PIYUSH Infusion Doxycycline Hyclate 100 mg/ 100 mls @ 100 mls/hr 04/07/21 12:00 Sodium Ch
[2021-04-07 14:00] VITALS: BP 100/72; PULSE 90; RESP 14; TEMP 36.3; O2SAT 96
[2021-04-07] MEDS: DOXYCYCLINE IV 100 MG in SODIUM CHLORIDE 0.9% IV 100 ML IVPB ×2 (15:05→23:28)
[2021-04-07] MEDS: ONDANSETRON HCL ODT 4 MG TABLET PO (15:05)
[2021-04-07] MEDS: QUEtiapine FUMARATE 100 MG TABLET 200 MG PO (19:51)
[2021-04-07 22:00] VITALS: BP 105/65; PULSE 80; RESP 16; TEMP 36.1; O2SAT 93
[2021-04-08] MEDS: HYDROmorphone HCL INJ (*CRX) 1 MG/ML SYR 0.5 MG IV PUSH ×2 (00:34→05:01)
[2021-04-08] MEDS: SODIUM CHLORIDE 0.9% IV 1,000 ML 125 ML IV CONT (05:07)
[2021-04-08 06:00] VITALS: BP 120/78; PULSE 114; RESP 22; TEMP 37.3; O2SAT 91
[2021-04-08] MEDS: LORazepam INJ (*CRX) 2 MG/ML VIAL IV PUSH (06:15)
[2021-04-08] MEDS: PHENAZOPYRIDINE HCL 100 MG TABLET 200 MG PO ×3 (08:07→16:55)
[2021-04-08] MEDS: PARoxetine 20 MG TABLET PO (08:08)
--- NOTE | 2021-04-08 10:21 | PM.IMPN ---
Progress Note: A&P Assessment and Plan (1) Pyelonephritis: Code(s): N12 - Tubulo-interstitial nephritis, not specified as acute or chronic Status: Acute Assessment and Plan: Clinical diagnosis of pyelonephritis due to significant abdominal pain with UTI however not noted on imaging -continue Ceftriaxone, await urine culture -continue hydration g -blood cultures r -abdominal pelvis CT, renal ultrasound, and right upper quadrant ultrasound shows no abnormalities -await urine culture and adjust medications as indicated (2) Transaminitis: Code(s): R74.01 - Elevation of levels of liver transaminase levels Status: Acute Assessment and Plan: Likely due to acute illness GI consult Patient had cholecystectomy Bilateral pain is not elevated goes against obstructive bile duct disease -CT of the abdomen pelvis and right upper quadrant ultrasound does not show any abnormalities -probable tick-borne disease added doxycycline patient has reaction in the past from doxycycline with vomiting I discussed with the patient in detail will give Zofran ordered Lyme disease and ehrlichiosis titer pending (3) Sepsis: Code(s): A41.9 - Sepsis, unspecified organism Status: Acute Assessment and Plan: Secondary to UTI possible tick-borne disease with evidence of hypotension and tachycardia -follow-up blood culture -continue Keflex doxycycline (4) Anxiety: Code(s): F41.9 - Anxiety disorder, unspecified Status: Acute Assessment and Plan: Xanax -continue Seroquel l (5) Nausea & vomiting: Code(s): R11.2 - Nausea with vomiting, unspecified Status: Acute Assessment and Plan: Improved scopolamine patch (6) Leukopenia: Code(s): D72.819 - Decreased white blood cell count, unspecified Status: Acute Assessment and Plan: Likely due to above illness Monitor CBC Subjective Date/time seen: 04/08/21 10:21 Interval history: Patient seen and examined Patient presented to the hospital with abdominal pain fever dysuria headache denies photophobia or neck rigidity patient lives close to the [place] and she walks her dog daily in the area patient denies tick bites Nausea vomiting has improved patient has tolerated diet Doxycycline was started yesterday Pending GI evaluation No sign of acute meningitis But patient still complains of headache Neurology was consulted will follow Neurology recommendation if lumbar puncture is needed Patient denies fever chest pain shortness of breath I am seeing the patient for abdominal pain Exam Narrative: Alert Chest no wheeze crackles Abdomen generalized tenderness no rebound no guarding better than yesterday Neck No neck stiffness CVS S1 + S2 Positive small area of skin rash in the upper part of the chest Neuro exam nonfocal Lower extremity negative edema Objective Data Vital Signs Vital Signs: Vital Signs - 24 hr 04/07/21 14:00 04/07/21 22:00 04/08/21 06:00 Temperature 97.4 F L 96.9 F L 99.2 F Pulse Rate 90 80 114 H Respiratory Rate 14 16 22 H Blood Pressure 100/72 105/65 120/78 Pulse Oximetry 96 93 91 Intake/Output Intake/Output: Intake & Output 04/05/21 04/06/21 04/07/21 04/08/21 23:59 23:59 23:59 23:59 Intake Total 1150 3730 3670 1120 Output Total 400 Balance 1150 3730 3270 1120 Meds/Results Medications: Active Medications Generic Name Dose Route Start Last Admin Trade Name Freq PRN Reason Stop Dose Admin Alprazolam 0.5 mg 04/08/21 09:47 Alprazolam (*Crx) 0.5 Mg Tablet PO TID PRN Anxiety Cephalexin HCl 500 mg 04/08/21 14:00 Cephalexin 500 Mg Capsule PO Q8HR PIYUSH Doxycycline Hyclate 100 mg 04/08/21 21:00 Doxycycline Hyclate 100 Mg Tablet PO Q12HR PIYUSH Hydromorphone HCl 2 mg 04/08/21 10:10 Hydromorphone Hcl (*Crx) 1 Mg Tablet PO Q4H PRN Pain Rated 7-10 Sodium Chloride 1,000 mls @ 125 mls/hr 1
[2021-04-08] MEDS: HYDROmorphone HCL (*CRX) 1 MG TABLET 2 MG PO ×3 (10:23→18:07)
--- NOTE | 2021-04-08 10:32 | WPDGICN ---
Assessment and Plan Assessment and plan (1) Transaminitis: Code(s): R74.01 - Elevation of levels of liver transaminase levels Status: Acute Assessment and Plan: Elevated serum transaminases appear to correlate with right upper quadrant abdominal pain. Clinically she appears to have hepatitis. Viral serologies are negative so far. Additional lab testing will be obtained. Initial impression patient is this likely is related to her sepsis from the kidney infection. Alternate etiologies include the possibility of medication effect. Continue to monitor LFTs at this time with supportive care should they worsen or fail to improve at some point liver biopsy may need to be considered but would hope to avoid this. (2) Pyelonephritis: Code(s): N12 - Tubulo-interstitial nephritis, not specified as acute or chronic Status: Acute (3) History of cholecystectomy: Onset Date: ~2013 Code(s): Z90.49 - Acquired absence of other specified parts of digestive tract Status: Inactive GI Consult Note Consult date/time: 04/08/21 10:32 HPI: Melissa Hebert is a 40 year old female I am asked to see because of elevated LFTs. Patient presented to the emergency room because of fevers and flank pain 5-6 days ago. At that time found to have pyelonephritis. Serum transaminases were noted to be elevated. Patient denies any known liver disease. She has no association with anyone with hepatitis. She has had no recent travel. He eats no exotic foods. Patient has a prior history of cholecystectomy and had a temporary biliary stent at that interval several years ago. Initial hepatitis serologies were identified as being negative. Family history is noncontributory. Review of Systems Review of Systems: All systems reviewed & are unremarkable except as noted in HPI and below PMFSH Past Medical History Medical History (Updated 04/06/21 @ 14:01 by Bobbi Haile PA-C) Cough History of pancreatitis (~2014) Malaise Nondisplaced fracture of distal end of right radius SOB (shortness of breath) Surgical History Surgical History (Updated 04/08/21 @ 10:36 by Madi Cannon MD) History of appendectomy (~1999) History of cholecystectomy (~2013) Hx of tonsillectomy (~1987) Social History Social History Smoking status: Never smoker Second hand tobacco smoke exposure: Yes Alcohol intake: never Substance use: former Substance use type: marijuana Other substance usage details: irregular use Gender identity (if verbalized by the patient): Female Spiritual care concerns: No Meds Home Medications and Allergies Home Medications Medication Instructions Recorded Confirmed Type clonazepam 1 mg tablet 1 mg PO HS tablet 08/18/19 04/06/21 History paroxetine HCl 20 mg tablet 20 mg PO DAILY 08/18/19 04/06/21 History ibuprofen 800 mg PO Q6H PRN #30 tablet 03/21/20 04/06/21 Rx lorazepam [Ativan] 2 mg PO BID PRN 04/05/21 04/06/21 History quetiapine [Seroquel] 200 mg PO HS 04/05/21 04/06/21 History Allergies Allergy/AdvReac Type Severity Reaction Status Date / Time doxycycline AdvReac Vomiting Verified 04/06/21 00:15 Vital Signs Vital Signs - 24 hr 04/07/21 14:00 04/07/21 22:00 04/08/21 06:00 Temperature 97.4 F L 96.9 F L 99.2 F Pulse Rate 90 80 114 H Respiratory Rate 14 16 22 H Blood Pressure 100/72 105/65 120/78 Pulse Oximetry 96 93 91 Exam Narrative: Physical exam reveals patient be alert. Vital signs stable. HEENT exam reveals no icterus. Lungs are clear. Heart without murmur. Abdomen bowel sounds are present soft she is tender in the right upper quadrant. She has some left flank pain. Results Labs CBC & Chem 7: 04/07/21 06:25 04/07/21 06:25 [facility] Consult Billing Inpatient Consult [id number] Initial Admit Mod
[2021-04-08 11:00] LABS: Hemoglobin 11.3 g/dL (12.0-15.0); Immature Granulocyte Absolute 0.01 K/mm3 (0.00-0.031); Immature Granulocyte Percent A 0.3 % (0-0.5); Lymphocytes Absolute Auto 0.79 K/mm3 (0.9-3.2); Lymphocytes Percent Auto 21.5 % (18.3-44.2); Mean Corpuscular HGB Conc 33.2 g/dl (32-36); Mean Corpuscular Hemoglobin 31.2 pg (26-34); Mean Corpuscular Volume 93.9 fl (80-100); Mean Platelet Volume 9.4 fl (7.4-10.4); Monocytes Absolute Auto 0.3 K/mm3 (0.1-0.6); Monocytes Percent Auto 7.1 % (2.6-8.5); Neutrophils Absolute Auto 2.6 K/mm3 (1.3-6.7); Neutrophils Percent Auto 71.1 % (45.5-73.1); Platelet Count Result 169 k/mm3 (150-375); Red Blood Count 3.62 M/mm3 (4.2-5.4); Red Cell Distribution Width 14.4 % (11.5-14.5); White Blood Count 3.7 K/mm3 (4.5-10.0)
[2021-04-08 11:17] LABS: Alanine Aminotransferase 397 U/L (4-35); Albumin Level 3.8 g/dL (3.5-5.1); Alkaline Phosphatase 370 U/L (38-126); Anion Gap 9 mmol/L (8-16); Aspartate Amino Transferase 420 U/L (14-36); Bilirubin,Total 0.9 mg/dL (0.2-1.3); Blood Urea Nitrogen 3 mg/dL (7-17); Calcium 8.7 mg/dL (8.4-10.2); Carbon Dioxide 26 mmol/L (22-30); Chloride 102 mmol/L (98-107); Estimated CRCL calculation 88 ml/min; Estimated Glomerular Filt Rate > 60; Glucose 132 mg/dL (65-110); Potassium 3.2 mmol/L (3.4-5.0); Sodium 137 mmol/L (137-145)
[2021-04-08] MEDS: ALPRAZolam (*CRX) 0.5 MG TABLET PO ×2 (12:17→20:10)
[2021-04-08] MEDS: IBUPROFEN 400 MG TABLET 800 MG PO (13:58)
[2021-04-08] MEDS: CEPHALEXIN 500 MG CAPSULE PO ×2 (14:21→20:45)
[2021-04-08 15:00] VITALS: BP 139/71; PULSE 99; RESP 16; TEMP 36.9; O2SAT 98
--- NOTE | 2021-04-08 16:03 | WPDNEURCNPN ---
Assessment and Plan Additional Plan nonfocal neurological examination at this particular time with the aide admission diagnosis of transaminitis tubular interstitial nephritis and pyelonephritis plan is to continue the treatment as such in follow Consult date: 04/08/21 HPI: Melissa Hebert is a 40 year old female admitted to the hospital through the emergency room for the complaints of left flank pain of 4 days duration associated with fever, dysuria and lower abdominal and left-sided pain associated with nausea and vomiting and with the diagnosis of pyelonephritis, never a smoker never alcohol drinker former substance user and as an outpatient taking clonazepam p.r.n. along with the paroxetine 20 mg daily and Ativan 2 mg b.i.d. p.r.n. also Seroquel 200 mg HS, CT of the head normal and chest x-ray negative being treated for the possible sarcoidosis because of the historical fact, also hepatic enzymes are elevated Review of Systems Review of Systems: All systems reviewed & are unremarkable except as noted in HPI and below PMFSH Past Medical History Medical History Cough History of pancreatitis (~2014) Malaise Nondisplaced fracture of distal end of right radius SOB (shortness of breath) Surgical History Surgical History History of appendectomy (~1999) History of cholecystectomy (~2013) Hx of tonsillectomy (~1987) Social History Social History Smoking status: Never smoker Second hand tobacco smoke exposure: Yes Alcohol intake: never Substance use: former Substance use type: marijuana Other substance usage details: irregular use Gender identity (if verbalized by the patient): Female Spiritual care concerns: No Meds Home Medications and Allergies Home Medications Medication Instructions Recorded Confirmed Type clonazepam 1 mg tablet 1 mg PO HS tablet 08/18/19 04/06/21 History paroxetine HCl 20 mg tablet 20 mg PO DAILY 08/18/19 04/06/21 History ibuprofen 800 mg PO Q6H PRN #30 tablet 03/21/20 04/06/21 Rx lorazepam [Ativan] 2 mg PO BID PRN 04/05/21 04/06/21 History quetiapine [Seroquel] 200 mg PO HS 04/05/21 04/06/21 History Allergies Allergy/AdvReac Type Severity Reaction Status Date / Time doxycycline AdvReac Vomiting Verified 04/06/21 00:15 Vital Signs Vital Signs - 24 hr 04/07/21 22:00 04/08/21 06:00 04/08/21 15:00 Temperature 36.1 C L 37.3 C 36.9 C Pulse Rate 80 114 H 99 Respiratory Rate 16 22 H 16 Blood Pressure 105/65 120/78 139/71 Pulse Oximetry 93 91 98 Exam Narrative: awake alert cooperative in no obvious acute distress, normocephalic with no cranial bruit, ear nose throat examination normal, neck is supple with no meningeal signs, heart regular with no murmur, lungs clear to auscultation abdomen is soft with some tenderness in the right upper quadrant neurological examination revealed her to be awake alert cooperative in no obvious acute distress his speech nor dysphasic not dysarthric nor dysphonic the cranial examination is normal motor examination revealed no focal motor deficit tone is normal reflexes are symmetrical and 1+ plantars are downgoing there is no evidence of sensory or cerebellar deficit Results Labs CBC & Chem 7: 04/08/21 10:51 04/08/21 10:51 Labs: Short CBC 04/08/21 Range/Units 10:51 WBC 3.7 L (4.5-10.0) K/mm3 Hgb 11.3 L (12.0-15.0) g/dL Hct 34.0 L (37.0-47.0) % Plt Count 169 (150-375) k/mm3 BMP 04/08/21 10:51 Sodium 137 Potassium 3.2 L Chloride 102 Carbon Dioxide 26 BUN 3 L Creatinine 0.70 Glucose 132 H Calcium 8.7 Liver Function 04/08/21 Range/Units 10:51 Total Bilirubin 0.9 (0.2-1.3) mg/dL AST 420 H (14-36) U/L ALT 397 H (4-35) U/L Alkaline Phosphatase 370 H (38-126) U/L Albumin 3.8 (3.5-5.1) g/dL Quality
[2021-04-08] MEDS: DOXYCYCLINE HYCLATE 100 MG TABLET PO (20:09)
[2021-04-08] MEDS: QUEtiapine FUMARATE 100 MG TABLET 200 MG PO (20:09)
[2021-04-08] MEDS: ONDANSETRON HCL ODT 4 MG TABLET PO (20:10)
[2021-04-08 22:00] VITALS: BP 96/66; PULSE 89; RESP 16; TEMP 35.9; O2SAT 97
[2021-04-09] MEDS: HYDROmorphone HCL (*CRX) 1 MG TABLET 2 MG PO ×6 (00:49→20:20)
[2021-04-09] MEDS: CEPHALEXIN 500 MG CAPSULE PO ×3 (05:16→21:51)
[2021-04-09 06:00] VITALS: BP 102/65; PULSE 93; RESP 20; TEMP 36.4; O2SAT 95
[2021-04-09 07:52] LABS: Basophils Percent Auto 0.3 % (0.2-1.2); Eosinophils Percent Auto 0.6 % (0-4.4); Hematocrit 34.9 % (37.0-47.0); Hemoglobin 11.4 g/dL (12.0-15.0); Immature Granulocyte Absolute 0.01 K/mm3 (0.00-0.031); Immature Granulocyte Percent A 0.3 % (0-0.5); Lymphocytes Absolute Auto 0.95 K/mm3 (0.9-3.2); Lymphocytes Percent Auto 28.2 % (18.3-44.2); Mean Corpuscular HGB Conc 32.7 g/dl (32-36); Mean Corpuscular Hemoglobin 31.3 pg (26-34); Mean Corpuscular Volume 95.9 fl (80-100); Mean Platelet Volume 9.8 fl (7.4-10.4); Monocytes Absolute Auto 0.3 K/mm3 (0.1-0.6); Monocytes Percent Auto 7.7 % (2.6-8.5); Neutrophils Absolute Auto 2.1 K/mm3 (1.3-6.7); Neutrophils Percent Auto 62.9 % (45.5-73.1); Platelet Count Result 169 k/mm3 (150-375); Red Blood Count 3.64 M/mm3 (4.2-5.4); Red Cell Distribution Width 14.6 % (11.5-14.5); White Blood Count 3.4 K/mm3 (4.5-10.0)
[2021-04-09 08:08] LABS: Alanine Aminotransferase 430 U/L (4-35); Albumin Level 3.7 g/dL (3.5-5.1); Alkaline Phosphatase 342 U/L (38-126); Anion Gap 8 mmol/L (8-16); Aspartate Amino Transferase 392 U/L (14-36); Blood Urea Nitrogen 6 mg/dL (7-17); Calcium 8.8 mg/dL (8.4-10.2); Carbon Dioxide 27 mmol/L (22-30); Chloride 101 mmol/L (98-107); Estimated CRCL calculation 102 ml/min; Estimated Glomerular Filt Rate > 60; Glucose 99 mg/dL (65-110); Potassium 3.5 mmol/L (3.4-5.0); Sodium 136 mmol/L (137-145)
[2021-04-09] MEDS: PARoxetine 20 MG TABLET PO (08:21)
[2021-04-09] MEDS: ONDANSETRON HCL ODT 4 MG TABLET PO ×2 (08:21→21:51)
[2021-04-09] MEDS: DOXYCYCLINE HYCLATE 100 MG TABLET PO ×2 (08:21→21:51)
[2021-04-09] MEDS: ALPRAZolam (*CRX) 0.5 MG TABLET PO ×3 (08:21→20:20)
[2021-04-09] MEDS: IBUPROFEN 400 MG TABLET 800 MG PO ×2 (08:21→13:51)
[2021-04-09] MEDS: PANTOPRAZOLE 40 MG TABLET PO (08:21)
--- NOTE | 2021-04-09 09:21 | PM.IMPN ---
Progress Note: A&P Assessment and Plan (1) Pyelonephritis: Code(s): N12 - Tubulo-interstitial nephritis, not specified as acute or chronic Status: Acute Assessment and Plan: Clinical diagnosis of pyelonephritis due to significant abdominal pain with UTI however not noted on imaging -continue Ceftriaxone, await urine culture -continue hydration g -blood cultures r -abdominal pelvis CT, renal ultrasound, and right upper quadrant ultrasound shows no abnormalities -continue Keflex plan for total of 10 days of antibiotics (2) Transaminitis: Code(s): R74.01 - Elevation of levels of liver transaminase levels Status: Acute Assessment and Plan: Likely due to acute illness GI consult Patient had cholecystectomy Bilateral pain is not elevated goes against obstructive bile duct disease -CT of the abdomen pelvis and right upper quadrant ultrasound does not show any abnormalities -probable tick-borne disease added doxycycline patient has reaction in the past from doxycycline with vomiting I discussed with the patient in detail will give Zofran ordered Lyme disease and ehrlichiosis titer pending -GI recommendation appreciated monitor LFT no plan for liver biopsy and less LFTs worsening -concern for autoimmune/vital/medication side effect (3) Sepsis: Code(s): A41.9 - Sepsis, unspecified organism Status: Acute Assessment and Plan: Secondary to UTI possible tick-borne disease with evidence of hypotension and tachycardia -follow-up blood culture -continue Keflex doxycycline (4) Anxiety: Code(s): F41.9 - Anxiety disorder, unspecified Status: Acute Assessment and Plan: Xanax -continue Seroquel l (5) Nausea & vomiting: Code(s): R11.2 - Nausea with vomiting, unspecified Status: Acute Assessment and Plan: Improved scopolamine patch (6) Leukopenia: Code(s): D72.819 - Decreased white blood cell count, unspecified Status: Acute Assessment and Plan: Likely due to above illness Monitor CBC Pending Vin level Check SLE rheumatoid arthritis antibodies Subjective Date/time seen: 04/09/21 09:21 Interval history: Patient seen and examined Patient presented to the hospital with abdominal pain fever dysuria headache denies photophobia or neck rigidity patient [place] the [place] and she walks her dog daily in the area patient denies tick bites Nausea vomiting has improved patient has tolerated diet Doxycycline was started yesterday GI recommendation appreciate continue to monitor for now no plan for liver biopsy No sign of acute meningitis neurology recommendation appreciated no plan for lumbar puncture Headache nausea and vomiting has significantly improved since starting doxycycline Pending tick-borne disease workup Chest x-ray negative for sign of sarcoidosis pending Vin level Patient denies fever chest pain shortness of breath I am seeing the patient for abdominal pain Exam Narrative: Alert Chest no wheeze crackles Abdomen generalized tenderness no rebound no guarding better than yesterday Neck No neck stiffness CVS S1 + S2 Positive small area of skin rash in the upper part of the chest Neuro exam nonfocal Lower extremity negative edema Objective Data Vital Signs Vital Signs: Vital Signs - 24 hr 04/08/21 15:00 04/08/21 22:00 04/09/21 06:00 Temperature 98.4 F 96.7 F L 97.6 F Pulse Rate 99 89 93 Respiratory Rate 16 16 20 Blood Pressure 139/71 96/66 L 102/65 Pulse Oximetry 98 97 95 Intake/Output Intake/Output: Intake & Output 04/06/21 04/07/21 04/08/21 04/09/21 23:59 23:59 23:59 23:59 Intake Total 3730 3670 3250 250 Output Total 400 Balance 3730 3270 3250 250 Meds/Results Medications: Active Medications Generic Name Dose Route Start Last Admin Trade Name Freq PRN Reason Stop Dose Admin Alprazolam 0.5 mg 04/08/21 09:47 04/09/21 08:21 Alprazolam (*Crx) 0.5 Mg Tabl
--- NOTE | 2021-04-09 10:02 | WPDGIPROGNO ---
Progress Note: A&P Assessment and Plan (1) Transaminitis: Code(s): R74.01 - Elevation of levels of liver transaminase levels Status: Acute Assessment and Plan: Patient with elevated transaminases and right upper quadrant pain consistent with hepatitis. Viral serologies are negative. Additional lab studies pending regarding other etiologies for hepatitis. Most likely this is related to her pyelonephritis and sepsis. Will continue to monitor liver test. Defer liver biopsy for now. But may be needed if it persists or if LFTs worsen. (2) Pyelonephritis: Code(s): N12 - Tubulo-interstitial nephritis, not specified as acute or chronic Status: Acute Assessment and Plan: Pyelonephritis appears to be etiology for pain and sepsis. Broad-spectrum antibiotics in progress. Be monitored by primary care service. Subjective Date/time seen: 04/09/21 10:02 Patient complains of general malaise. Ongoing right upper quadrant discomfort as well as left flank pain. Review of Systems Review of Systems: All systems reviewed & are unremarkable except as noted in HPI and below Exam Narrative: Physical exam reveals patient be alert. Vital signs stable. HEENT exam reveals no icterus. Lungs are clear. Heart without murmur. Abdomen bowel sounds present soft tender in the right upper quadrant peers be liver tenderness. Extremities without clubbing cyanosis or edema. Objective Data Vital Signs Vital Signs: Vital Signs - 24 hr 04/08/21 15:00 04/08/21 22:00 04/09/21 06:00 Temperature 98.4 F 96.7 F L 97.6 F Pulse Rate 99 89 93 Respiratory Rate 16 16 20 Blood Pressure 139/71 96/66 L 102/65 Pulse Oximetry 98 97 95 Intake/Output Intake/Output: Intake & Output 04/06/21 04/07/21 04/08/21 04/09/21 23:59 23:59 23:59 23:59 Intake Total 3730 3670 3250 490 Output Total 400 Balance 3730 3270 3250 490 Meds/Results Medications: Active Medications Generic Name Dose Route Start Last Admin Trade Name Freq PRN Reason Stop Dose Admin Alprazolam 0.5 mg 04/08/21 09:47 04/09/21 08:21 Alprazolam (*Crx) 0.5 Mg Tablet PO 0.5 mg TID PRN Administration Anxiety Cephalexin HCl 500 mg 04/08/21 14:00 04/09/21 05:16 Cephalexin 500 Mg Capsule PO 500 mg Q8HR PIYUSH Administration Doxycycline Hyclate 100 mg 04/08/21 21:00 04/09/21 08:21 Doxycycline Hyclate 100 Mg Tablet PO 100 mg Q12HR PIYUSH Administration Hydromorphone HCl 2 mg 04/08/21 10:10 04/09/21 09:23 Hydromorphone Hcl (*Crx) 1 Mg Tablet PO 2 mg Q4H PRN Administration Pain Rated 7-10 Ibuprofen 800 mg 04/06/21 06:10 04/09/21 08:21 Ibuprofen 400 Mg Tablet PO 800 mg Q6H PRN Administration Pain Rated 1-3 Ketorolac Tromethamine 15 mg 04/06/21 01:23 04/06/21 01:31 Ketorolac 30 Mg/Ml Vial (*Bkc) IV PUSH 15 mg Q6H PRN Administration Pain Rated 4-6 Ondansetron HCl 4 mg 04/06/21 09:14 04/09/21 08:21 Ondansetron Hcl Odt 4 Mg Tablet PO 4 mg Q6H PRN Administration Nausea And Vomiting Pantoprazole Sodium 40 mg 04/09/21 09:00 04/09/21 08:21 Pantoprazole 40 Mg Tablet PO 40 mg QAM PIYUSH Administration Paroxetine HCl 20 mg 04/06/21 09:00 04/09/21 08:21 Paroxetine 20 Mg Tablet PO 20 mg DAILY PIYUSH Administration Quetiapine Fumarate 200 mg 04/05/21 22:40 04/08/21 20:09 Quetiapine Fumarate 100 Mg Tablet PO 200 mg HS PIYUSH Administration Scopolamine 1.5 mg 04/06/21 13:21 04/06/21 15:01 Scopolamine 1.5 Mg Patch TRANSDERM 1.5 mg Q72HR PRN Administration nausea Radiology Results: ITS Impressions Abdomen/Pelvis CT 04/05/21 18:17 IMPRESSION: 1. No acute abdominal abnormality. 2: Mild bilateral inguinal lymphadenopathy, likely reactive. Renal Ultrasound 04/06/21 09:01 IMPRESSION: 1. Sonographically unremarkable kidneys. Upper Quadrant Ultrasound 04/06/21 09:05 IMPRESSION: 1. No sonographic correla
[2021-04-09 14:00] VITALS: BP 94/60; PULSE 85; RESP 16; TEMP 36.1; O2SAT 97
[2021-04-09 14:02] LABS: Rheumatoid Factor < 8.6 IU/ML (<12)
[2021-04-09] MEDS: QUEtiapine FUMARATE 100 MG TABLET 200 MG PO (20:19)
[2021-04-09 22:00] VITALS: BP 90/50; PULSE 89; RESP 18; TEMP 35.9; O2SAT 96
[2021-04-10] MEDS: HYDROmorphone HCL (*CRX) 1 MG TABLET 2 MG PO ×6 (00:45→21:51)
[2021-04-10] MEDS: IBUPROFEN 400 MG TABLET 800 MG PO ×2 (05:18→15:20)
[2021-04-10] MEDS: CEPHALEXIN 500 MG CAPSULE PO ×3 (05:23→21:52)
[2021-04-10 06:00] VITALS: BP 87/57; PULSE 87; RESP 18; TEMP 35.7; O2SAT 95
[2021-04-10 06:12] LABS: Alanine Aminotransferase 435 U/L (4-35); Albumin Level 3.8 g/dL (3.5-5.1); Alkaline Phosphatase 352 U/L (38-126); Anion Gap 9 mmol/L (8-16); Aspartate Amino Transferase 435 U/L (14-36); Blood Urea Nitrogen 6 mg/dL (7-17); Calcium 8.9 mg/dL (8.4-10.2); Carbon Dioxide 30 mmol/L (22-30); Chloride 99 mmol/L (98-107); Estimated CRCL calculation 78 ml/min; Estimated Glomerular Filt Rate > 60; Glucose 101 mg/dL (65-110); Potassium 3.2 mmol/L (3.4-5.0); Sodium 138 mmol/L (137-145)
[2021-04-10 06:15] LABS: Basophils Percent Auto 0.5 % (0.2-1.2); Eosinophils Percent Auto 0.8 % (0-4.4); Hematocrit 35.3 % (37.0-47.0); Hemoglobin 11.5 g/dL (12.0-15.0); Immature Granulocyte Absolute 0.01 K/mm3 (0.00-0.031); Immature Granulocyte Percent A 0.3 % (0-0.5); Lymphocytes Absolute Auto 1.25 K/mm3 (0.9-3.2); Mean Corpuscular HGB Conc 32.6 g/dl (32-36); Mean Corpuscular Hemoglobin 30.7 pg (26-34); Mean Corpuscular Volume 94.4 fl (80-100); Mean Platelet Volume 9.7 fl (7.4-10.4); Monocytes Absolute Auto 0.3 K/mm3 (0.1-0.6); Monocytes Percent Auto 7.9 % (2.6-8.5); Neutrophils Absolute Auto 2.2 K/mm3 (1.3-6.7); Neutrophils Percent Auto 57.5 % (45.5-73.1); Platelet Count Result 179 k/mm3 (150-375); Red Blood Count 3.74 M/mm3 (4.2-5.4); Red Cell Distribution Width 14.3 % (11.5-14.5); White Blood Count 3.8 K/mm3 (4.5-10.0)
[2021-04-10] MEDS: ALPRAZolam (*CRX) 0.5 MG TABLET PO ×3 (08:56→21:03)
[2021-04-10] MEDS: ONDANSETRON HCL ODT 4 MG TABLET PO (08:56)
[2021-04-10] MEDS: DOXYCYCLINE HYCLATE 100 MG TABLET PO ×2 (08:56→20:56)
[2021-04-10] MEDS: PARoxetine 20 MG TABLET PO (08:57)
[2021-04-10] MEDS: PANTOPRAZOLE 40 MG TABLET PO (08:57)
--- NOTE | 2021-04-10 09:31 | WPDGIPROGNO ---
Progress Note: A&P Assessment and Plan (1) Pyelonephritis: Code(s): N12 - Tubulo-interstitial nephritis, not specified as acute or chronic Status: Acute Assessment and Plan: Pyelonephritis appears to cause sepsis at the time of presentation currently being treated with antibiotics. Accounts for left flank pain. Potentially contributes to elevated serum transaminases. (2) Hepatitis: Code(s): K75.9 - Inflammatory liver disease, unspecified Status: Acute Assessment and Plan: Patient has clinical hepatitis with elevated transaminases. Right upper quadrant liver tenderness identified. The etiology of this is somewhat unclear. Hep viral hepatitis serologies are negative. Additional labs are pending. If liver tests worsen her pain persists we may want to do a liver biopsy to further evaluate. At present suspect this potentially is related to her sepsis. Conservative monitoring at this point advised. Subjective Date/time seen: 04/10/21 09:31 Patient alert. Continues to complain of right upper quadrant pain. She states her left flank is beginning to improve. She has poor appetite somewhat uncomfortable at rest. Review of Systems Review of Systems: All systems reviewed & are unremarkable except as noted in HPI and below Exam Narrative: Physical exam reveals patient to be alert. Vital signs stable. HEENT exam reveals no icterus. Lungs are clear. Heart without murmur. Abdomen bowel sounds present soft tender in the right upper quadrant. Objective Data Vital Signs Vital Signs: Vital Signs - 24 hr 04/09/21 14:00 04/09/21 22:00 04/10/21 06:00 Temperature 96.9 F L 96.7 F L 96.3 F L Pulse Rate 85 89 87 Respiratory Rate 16 18 18 Blood Pressure 94/60 L 90/50 L 87/57 L Pulse Oximetry 97 96 95 Intake/Output Intake/Output: Intake & Output 04/07/21 04/08/21 04/09/21 04/10/21 23:59 23:59 23:59 23:59 Intake Total 3670 3250 1520 200 Output Total 400 Balance 3270 3250 1520 200 Meds/Results Medications: Active Medications Generic Name Dose Route Start Last Admin Trade Name Freq PRN Reason Stop Dose Admin Alprazolam 0.5 mg 04/08/21 09:47 04/10/21 08:56 Alprazolam (*Crx) 0.5 Mg Tablet PO 0.5 mg TID PRN Administration Anxiety Cephalexin HCl 500 mg 04/08/21 14:00 04/10/21 05:23 Cephalexin 500 Mg Capsule PO 500 mg Q8HR PIYUSH Administration Doxycycline Hyclate 100 mg 04/08/21 21:00 04/10/21 08:56 Doxycycline Hyclate 100 Mg Tablet PO 100 mg Q12HR PIYUSH Administration Hydromorphone HCl 2 mg 04/08/21 10:10 04/10/21 08:56 Hydromorphone Hcl (*Crx) 1 Mg Tablet PO 2 mg Q4H PRN Administration Pain Rated 7-10 Ibuprofen 800 mg 04/06/21 06:10 04/10/21 05:18 Ibuprofen 400 Mg Tablet PO 800 mg Q6H PRN Administration Pain Rated 1-3 Ketorolac Tromethamine 15 mg 04/06/21 01:23 04/06/21 01:31 Ketorolac 30 Mg/Ml Vial (*Bkc) IV PUSH 15 mg Q6H PRN Administration Pain Rated 4-6 Ondansetron HCl 4 mg 04/06/21 09:14 04/10/21 08:56 Ondansetron Hcl Odt 4 Mg Tablet PO 4 mg Q6H PRN Administration Nausea And Vomiting Pantoprazole Sodium 40 mg 04/09/21 09:00 04/10/21 08:57 Pantoprazole 40 Mg Tablet PO 40 mg QAM PIYUSH Administration Paroxetine HCl 20 mg 04/06/21 09:00 04/10/21 08:57 Paroxetine 20 Mg Tablet PO 20 mg DAILY PIYUSH Administration Quetiapine Fumarate 200 mg 04/05/21 22:40 04/09/21 20:19 Quetiapine Fumarate 100 Mg Tablet PO 200 mg HS PIYUSH Administration Scopolamine 1.5 mg 04/06/21 13:21 04/06/21 15:01 Scopolamine 1.5 Mg Patch TRANSDERM 1.5 mg Q72HR PRN Administration nausea Radiology Results: ITS Impressions Abdomen/Pelvis CT 04/05/21 18:17 IMPRESSION: 1. No acute abdominal abnormality. 2: Mild bilateral inguinal lymphadenopathy, likely reactive. Renal Ultrasound 04/06/21 09:01 IMPRESSION: 1. Sonographically unremarkable [place]
--- NOTE | 2021-04-10 10:22 | PM.IMPN ---
Progress Note: A&P Assessment and Plan (1) Pyelonephritis: Code(s): N12 - Tubulo-interstitial nephritis, not specified as acute or chronic Status: Acute Assessment and Plan: Clinical diagnosis of pyelonephritis due to significant abdominal pain with UTI however not noted on imaging. Blood and urine cultures have been negative at the time of this dictation. -continue Ceftriaxone. -continue hydration. -encourage oral intake as tolerated. -abdominal pelvis CT, renal ultrasound, and right upper quadrant ultrasound shows no abnormalities -continue Keflex plan for total of 10 days of antibiotics (2) Transaminitis: Code(s): R74.01 - Elevation of levels of liver transaminase levels Status: Acute Assessment and Plan: Likely due to acute illness GI consult Patient had cholecystectomy Bilateral pain is not elevated goes against obstructive bile duct disease -CT of the abdomen pelvis and right upper quadrant ultrasound does not show any abnormalities -probable tick-borne disease added doxycycline patient has reaction in the past from doxycycline with vomiting I discussed with the patient in detail will give Zofran ordered Lyme disease and ehrlichiosis titer pending -GI recommendation appreciated monitor LFT ;no plan for liver biopsy unless LFTs worsening. LFTs are plateauing. -concern for autoimmune/vital/medication side effect (3) Sepsis: Code(s): A41.9 - Sepsis, unspecified organism Status: Acute Assessment and Plan: Secondary to UTI possible tick-borne disease with evidence of hypotension and tachycardia -follow-up blood culture -continue Keflex and doxycycline (4) Anxiety: Code(s): F41.9 - Anxiety disorder, unspecified Status: Acute Assessment and Plan: Xanax -continue Seroquel l (5) Nausea & vomiting: Code(s): R11.2 - Nausea with vomiting, unspecified Status: Acute Assessment and Plan: Improved scopolamine patch. Oral intake remains very poor. Continue IV hydration. (6) Leukopenia: Code(s): D72.819 - Decreased white blood cell count, unspecified Status: Acute Assessment and Plan: Likely due to above illness Monitor CBC Pending Vin level Check SLE rheumatoid arthritis antibodies Additional Plan # left pyelonephritis clinically UA positive with left renal angle tenderness however WBC count is normal. Ceftriaxone IV as ordered follow urine culture. IV hydration # elevated liver enzymes unclear etiology mild nonspecific tenderness on clinical examination history of biliary stent for pancreatitis in the past. No history of alcohol abuse. Will check Tylenol level salicylate level and also hepatitis panel. Recheck and monitor # history of pancreatitis requiring biliary stent now removed # anxiety depression resume home medication # status post cholecystectomy # marijuana use # DVT prophylaxis SCDs early ambulation # full code status Subjective Date/time seen: 04/10/21 10:22 S: Patient was seen and examined at the bedside. Reports quite a for quadrant tenderness and nerve pain. Abdominal and vomiting resolve, appetite remains poor. Patient was evaluated by GI for deranged liver function tests; likely secondary to sepsis. Continue to monitor for now. Review of Systems Review of Systems: All systems reviewed & are unremarkable except as noted in HPI and below Constitutional: Constitutional: Reports fatigue and Reports weakness Eyes: Eyes: Reports as per HPI ENT: Reports as per HPI Cardiovascular: Cardiovascular: Reports as per HPI Respiratory: Respiratory: Reports as per HPI Gastrointestinal: Gastrointestinal: Reports as per HPI and Reports abdominal pain Comments: Right upper quadrant abdominal pain. Genitourinary: Genitourinary: Reports flank pain Comments: Left flank pain. Musculoskeletal: Musculoskeletal: Reports no additional musculoskeletal complaints and Reports
[2021-04-10 14:00] VITALS: BP 124/76; PULSE 89; RESP 14; TEMP 36.4; O2SAT 95
--- NOTE | 2021-04-10 18:35 | PC.NURSE ---
1829- Patient transferred to pre-op overflow room 11. Patient oriented to room, call light in reach, and no complaints of pain or discomfort. Patient verbalized understanding at this time. Upon exiting room this RN observed patient's left pupil to be dilated and right pupil normal and reactive to light. Patient denying neurological symptoms or complaints. 1834- Call to Hiwot Velasquez MD of patient's left pupil assessment and scopolamine patch noted behind left ear that had been in place since 04/06/2021. Informed MD patient has no IV access and obtained orders that it is OK for patient to have no IV with patient receiving oral antibiotics. Per MD she will assess patient's neurological status tomorrow and to remove scopolamine patch. Per MD be sure patient is eating and drinking.
--- NOTE | 2021-04-10 18:50 | PC.NURSE ---
report given to pacu, pt off floor at this time all belongings taken.
[2021-04-10] MEDS: QUEtiapine FUMARATE 100 MG TABLET 200 MG PO (20:56)
[2021-04-10 21:00] VITALS: BP 99/68; PULSE 84; RESP 20; TEMP 36.8; O2SAT 96
[2021-04-11] MEDS: HYDROmorphone HCL (*CRX) 2 MG TABLET PO ×5 (03:19→20:19)
[2021-04-11 06:00] VITALS: BP 95/67; PULSE 93; RESP 20; TEMP 36.5; O2SAT 93
[2021-04-11] MEDS: CEPHALEXIN 500 MG CAPSULE PO ×3 (06:19→21:39)
[2021-04-11] MEDS: IBUPROFEN 400 MG TABLET 800 MG PO ×3 (06:19→21:39)
[2021-04-11 07:21] LABS: Basophils Percent Auto 0.2 % (0.2-1.2); Eosinophils Percent Auto 0.7 % (0-4.4); Hematocrit 34.7 % (37.0-47.0); Hemoglobin 11.4 g/dL (12.0-15.0); Immature Granulocyte Absolute 0.01 K/mm3 (0.00-0.031); Immature Granulocyte Percent A 0.2 % (0-0.5); Lymphocytes Absolute Auto 1.24 K/mm3 (0.9-3.2); Lymphocytes Percent Auto 30.4 % (18.3-44.2); Mean Corpuscular HGB Conc 32.9 g/dl (32-36); Mean Corpuscular Hemoglobin 31.3 pg (26-34); Mean Corpuscular Volume 95.3 fl (80-100); Mean Platelet Volume 9.2 fl (7.4-10.4); Monocytes Absolute Auto 0.3 K/mm3 (0.1-0.6); Monocytes Percent Auto 8.3 % (2.6-8.5); Neutrophils Absolute Auto 2.5 K/mm3 (1.3-6.7); Neutrophils Percent Auto 60.2 % (45.5-73.1); Platelet Count Result 148 k/mm3 (150-375); Red Blood Count 3.64 M/mm3 (4.2-5.4); Red Cell Distribution Width 14.3 % (11.5-14.5); White Blood Count 4.1 K/mm3 (4.5-10.0)
[2021-04-11 07:30] LABS: Alanine Aminotransferase 410 U/L (4-35); Albumin Level 3.6 g/dL (3.5-5.1); Alkaline Phosphatase 315 U/L (38-126); Anion Gap 5 mmol/L (8-16); Aspartate Amino Transferase 414 U/L (14-36); Bilirubin,Total 1.1 mg/dL (0.2-1.3); Blood Urea Nitrogen 7 mg/dL (7-17); Calcium 8.7 mg/dL (8.4-10.2); Carbon Dioxide 33 mmol/L (22-30); Chloride 98 mmol/L (98-107); Estimated CRCL calculation 78 ml/min; Estimated Glomerular Filt Rate > 60; Glucose 103 mg/dL (65-110); Potassium 3.6 mmol/L (3.4-5.0); Sodium 136 mmol/L (137-145)
[2021-04-11] MEDS: ALPRAZolam (*CRX) 0.5 MG TABLET PO ×3 (07:38→20:15)
[2021-04-11 08:00] VITALS: PULSE 93; RESP 20; O2SAT 93
[2021-04-11] MEDS: DOXYCYCLINE HYCLATE 100 MG TABLET PO ×2 (08:44→20:15)
[2021-04-11] MEDS: PANTOPRAZOLE 40 MG TABLET PO (08:44)
[2021-04-11] MEDS: PARoxetine 20 MG TABLET PO (08:45)
[2021-04-11] MEDS: ONDANSETRON HCL ODT 4 MG TABLET PO ×2 (08:48→21:15)
--- NOTE | 2021-04-11 10:40 | PM.IMPN ---
Progress Note: A&P Assessment and Plan (1) Pyelonephritis: Code(s): N12 - Tubulo-interstitial nephritis, not specified as acute or chronic Status: Acute Assessment and Plan: Clinical diagnosis of pyelonephritis due to significant abdominal pain with UTI however not noted on imaging. Blood and urine cultures have been negative so for. -continue Ceftriaxone. -continue hydration. -encourage oral intake as tolerated. -abdominal pelvis CT, renal ultrasound, and right upper quadrant ultrasound shows no abnormalities -continue Keflex plan for total of 10 days of antibiotics (2) Transaminitis: Code(s): R74.01 - Elevation of levels of liver transaminase levels Status: Acute Assessment and Plan: Likely due to acute illness. GI following. Patient previously had cholecystectomy. Patient remains symptomatic with right upper quadrant abdominal pain. Appetite is poor and oral intake is suboptimal. Bilateral pain is not elevated goes against obstructive bile duct disease -CT of the abdomen pelvis and right upper quadrant ultrasound does not show any abnormalities -probable tick-borne disease added doxycycline patient has reaction in the past from doxycycline with vomiting I discussed with the patient in detail will give Zofran ordered Lyme disease and ehrlichiosis titer pending -GI recommendation appreciated monitor LFT ;no plan for liver biopsy unless LFTs worsening. LFTs are plateauing. -concern for autoimmune/vital/medication side effect; -plan for discharge home tomorrow. (3) Sepsis: Code(s): A41.9 - Sepsis, unspecified organism Status: Acute Assessment and Plan: Secondary to UTI possible tick-borne disease with evidence of hypotension and tachycardia -follow-up blood culture -continue Keflex and doxycycline (4) Anxiety: Code(s): F41.9 - Anxiety disorder, unspecified Status: Acute Assessment and Plan: Xanax -continue Seroquel l (5) Nausea & vomiting: Code(s): R11.2 - Nausea with vomiting, unspecified Status: Acute Assessment and Plan: Improved scopolamine patch. Oral intake remains very poor. Continue IV hydration. (6) Leukopenia: Code(s): D72.819 - Decreased white blood cell count, unspecified Status: Acute Assessment and Plan: Likely due to above illness Monitor CBC Pending Vin level Check SLE rheumatoid arthritis antibodies Additional Plan # left pyelonephritis clinically UA positive with left renal angle tenderness however WBC count is normal. Ceftriaxone IV as ordered follow urine culture. IV hydration # elevated liver enzymes unclear etiology mild nonspecific tenderness on clinical examination history of biliary stent for pancreatitis in the past. No history of alcohol abuse. Will check Tylenol level salicylate level and also hepatitis panel. Recheck and monitor # history of pancreatitis requiring biliary stent now removed # anxiety depression resume home medication # status post cholecystectomy # marijuana use # DVT prophylaxis SCDs early ambulation # full code status Subjective Date/time seen: 04/11/21 13:40 S: Patient was examined at the bedside. She reports left upper quadrant pain and right flank pain. Appetite remains poor. She is tolerating IV fluids. Review of Systems Review of Systems: All systems reviewed & are unremarkable except as noted in HPI and below Constitutional: Constitutional: Reports fatigue and Reports weakness Eyes: Eyes: Reports as per HPI ENT: Reports as per HPI Cardiovascular: Cardiovascular: Reports as per HPI Respiratory: Respiratory: Reports as per HPI Gastrointestinal: Gastrointestinal: Reports as per HPI and Reports abdominal pain Genitourinary: Genitourinary: Reports flank pain Musculoskeletal: Musculoskeletal: Reports no additional musculoskeletal complaints and Reports as per HPI Integumentary/Breasts: Skin/Breast: Reports
--- NOTE | 2021-04-11 12:50 | WPDGIPROGNO ---
Progress Note: A&P Assessment and Plan (1) Hepatitis: Code(s): K75.9 - Inflammatory liver disease, unspecified Status: Acute Assessment and Plan: Patient with hepatitis. Viral serologies are negative. Suspect elevated LFTs are related to her sepsis and pyelonephritis. Laboratory workup to date is negative. Plan is for follow-up LFTs 1 week after discharge. Follow-up in the GI office in 2-3 weeks for follow-up. (2) Pyelonephritis: Code(s): N12 - Tubulo-interstitial nephritis, not specified as acute or chronic Status: Acute Assessment and Plan: Patient will continue antibiotics directed by the primary care service after discharge. (3) Transaminitis: Code(s): R74.01 - Elevation of levels of liver transaminase levels Status: Acute Assessment and Plan: Elevated transaminases related to her right upper quadrant pain. Hepatitis presumably a on the basis of her sepsis. Follow-up LFTs in 1 week. Follow up in GI office in 3-4 weeks. Subjective Date/time seen: 04/11/21 12:50 Patient alert this morning. Continues to note left flank pain and right upper quadrant pain. Tolerating diet. No fever today. Review of Systems Review of Systems: All systems reviewed & are unremarkable except as noted in HPI and below Exam Narrative: Physical exam reveals patient be alert. Vital signs are stable. HEENT exam reveals no icterus. Lungs are clear. Heart without murmur. Abdomen soft with right upper quadrant tenderness. Extremities without clubbing cyanosis or edema. Objective Data Vital Signs Vital Signs: Vital Signs - 24 hr 04/10/21 14:00 04/10/21 21:00 04/11/21 06:00 Temperature 97.6 F 98.3 F 97.7 F Pulse Rate 89 84 93 Respiratory Rate 14 20 20 Blood Pressure 124/76 99/68 L 95/67 L Pulse Oximetry 95 96 93 04/11/21 08:00 Temperature Pulse Rate 93 Respiratory Rate 20 Blood Pressure Pulse Oximetry 93 Intake/Output Intake/Output: Intake & Output 04/08/21 04/09/21 04/10/21 04/11/21 23:59 23:59 23:59 23:59 Intake Total 3250 1520 380 Balance 3250 1520 380 Meds/Results Medications: Active Medications Generic Name Dose Route Start Last Admin Trade Name Freq PRN Reason Stop Dose Admin Alprazolam 0.5 mg 04/08/21 09:47 04/11/21 07:38 Alprazolam (*Crx) 0.5 Mg Tablet PO 0.5 mg TID PRN Administration Anxiety Cephalexin HCl 500 mg 04/08/21 14:00 04/11/21 06:19 Cephalexin 500 Mg Capsule PO 500 mg Q8HR PIYUSH Administration Doxycycline Hyclate 100 mg 04/08/21 21:00 04/11/21 08:44 Doxycycline Hyclate 100 Mg Tablet PO 100 mg Q12HR PIYUSH Administration Hydromorphone HCl 2 mg 04/10/21 21:45 04/11/21 11:41 Hydromorphone Hcl (*Crx) 2 Mg Tablet PO 2 mg Q4H PRN Administration Pain Rated 7-10 Ibuprofen 800 mg 04/06/21 06:10 04/11/21 06:19 Ibuprofen 400 Mg Tablet PO 800 mg Q6H PRN Administration Pain Rated 1-3 Ondansetron HCl 4 mg 04/06/21 09:14 04/11/21 08:48 Ondansetron Hcl Odt 4 Mg Tablet PO 4 mg Q6H PRN Administration Nausea And Vomiting Pantoprazole Sodium 40 mg 04/09/21 09:00 04/11/21 08:44 Pantoprazole 40 Mg Tablet PO 40 mg QAM PIYUSH Administration Paroxetine HCl 20 mg 04/06/21 09:00 04/11/21 08:45 Paroxetine 20 Mg Tablet PO 20 mg DAILY PIYUSH Administration Quetiapine Fumarate 200 mg 04/05/21 22:40 04/10/21 20:56 Quetiapine Fumarate 100 Mg Tablet PO 200 mg HS PIYUSH Administration Scopolamine 1.5 mg 04/06/21 13:21 04/06/21 15:01 Scopolamine 1.5 Mg Patch TRANSDERM 1.5 mg Q72HR PRN Administration nausea Radiology Results: ITS Impressions Abdomen/Pelvis CT 04/05/21 18:17 IMPRESSION: 1. No acute abdominal abnormality. 2: Mild bilateral inguinal lymphadenopathy, likely reactive. Renal Ultrasound 04/06/21 09:01 IMPRESSION: 1. Sonographically unremarkable kidneys. Upper Quadrant Ultrasound 04/06
[2021-04-11 15:33] VITALS: BP 106/73; PULSE 85; RESP 12; TEMP 36.9; O2SAT 96
[2021-04-11 20:00] VITALS: PULSE 78; RESP 18; O2SAT 95
[2021-04-11] MEDS: QUEtiapine FUMARATE 100 MG TABLET 200 MG PO (20:15)
[2021-04-11 21:43] VITALS: BP 96/64; PULSE 78; RESP 18; TEMP 36.3; O2SAT 95
[2021-04-12] MEDS: HYDROmorphone HCL (*CRX) 2 MG TABLET PO ×3 (01:18→09:42)
[2021-04-12] MEDS: CEPHALEXIN 500 MG CAPSULE PO (06:00)
[2021-04-12 06:36] VITALS: BP 103/64; PULSE 80; RESP 16; TEMP 36.9; O2SAT 94
[2021-04-12] MEDS: PANTOPRAZOLE 40 MG TABLET PO (09:41)
[2021-04-12] MEDS: PARoxetine 20 MG TABLET PO (09:42)
[2021-04-12] MEDS: ALPRAZolam (*CRX) 0.5 MG TABLET PO (09:42)
[2021-04-12] MEDS: IBUPROFEN 400 MG TABLET 800 MG PO (09:43)
[2021-04-12] MEDS: SCOPOLAMINE 1.5 MG PATCH TRANSDERM (09:43)
[2021-04-12] MEDS: ONDANSETRON HCL ODT 4 MG TABLET PO (09:43)
[2021-04-12 09:49] LABS: Mitochondrial (M2) Ab (IgG) <=20.0 U (<=20.0)
[2021-04-12] MEDS: DOXYCYCLINE HYCLATE 100 MG TABLET PO (10:18)
[2021-04-12 10:20] LABS: Ceruloplasmin 40 mg/dL (18-53)
[2021-04-12 12:28] LABS: Angiotensin Converting Enzyme 94 U/L (9-67)
--- NOTE | 2021-04-12 15:36 | PM.DS ---
DS: Admitting Diagnosis Discharge Date 04/12/21 Admitting Diagnosis (1) Pyelonephritis: (2) Transaminitis: (3) Left pyelonephritis (4) elevated liver enzymes (5) history of pancreatitis requiring biliary stent now removed (6) anxiety depression (7)status post cholecystectomy (8)marijuana use (9)DVT prophylaxis DS: Discharge Diagnosis Discharge Diagnosis (1) Hepatitis: Code(s): K75.9 - Inflammatory liver disease, unspecified Status: Acute Assessment and Plan: Unclear etiology. Conservative management. Monitor LFTs. Follow up with GI as an outpatient. (2) Leukopenia: Code(s): D72.819 - Decreased white blood cell count, unspecified Status: Acute Assessment and Plan: Likely due to above illness Monitor CBC Pending Vin level Check SLE rheumatoid arthritis antibodies (3) Nausea & vomiting: Code(s): R11.2 - Nausea with vomiting, unspecified Status: Acute Assessment and Plan: Improved scopolamine patch. Oral intake remains very poor. Continue IV hydration. (4) Anxiety: Code(s): F41.9 - Anxiety disorder, unspecified Status: Acute Assessment and Plan: Xanax -continue Seroquel l (5) Sepsis: Code(s): A41.9 - Sepsis, unspecified organism Status: Acute Assessment and Plan: Secondary to UTI possible tick-borne disease with evidence of hypotension and tachycardia -follow-up blood culture -continue Keflex and doxycycline (6) Pyelonephritis: Code(s): N12 - Tubulo-interstitial nephritis, not specified as acute or chronic Status: Acute Assessment and Plan: Clinical diagnosis of pyelonephritis due to significant abdominal pain with UTI however not noted on imaging. Blood and urine cultures have been negative so for. -continue Ceftriaxone. -continue hydration. -encourage oral intake as tolerated. -abdominal pelvis CT, renal ultrasound, and right upper quadrant ultrasound shows no abnormalities -continue Keflex plan for total of 10 days of antibiotics (7) Transaminitis: Code(s): R74.01 - Elevation of levels of liver transaminase levels Status: Acute Assessment and Plan: Likely due to acute illness. GI following. Patient previously had cholecystectomy. Patient remains symptomatic with right upper quadrant abdominal pain. Appetite is poor and oral intake is suboptimal. Bilateral pain is not elevated goes against obstructive bile duct disease -CT of the abdomen pelvis and right upper quadrant ultrasound does not show any abnormalities -probable tick-borne disease added doxycycline patient has reaction in the past from doxycycline with vomiting I discussed with the patient in detail will give Zofran ordered Lyme disease and ehrlichiosis titer pending -GI recommendation appreciated monitor LFT ;no plan for liver biopsy unless LFTs worsening. LFTs are plateauing. -concern for autoimmune/vital/medication side effect; -plan for discharge home tomorrow. (8) Nondisplaced fracture of distal end of right radius: Code(s): S52.501A - Unspecified fracture of the lower end of right radius, initial encounter for closed fracture Status: Acute DS: Summary Hospital Course Reason for hospitalization: Fever abdominal pain Hospital Course: Please refer to admission H& P. Briefly, this is a 40 year old female that presents to the ER for left flank pain x 4 days there is associated fever dysuria and lower abdominal and left-sided abdominal pain. Also associated nausea and vomiting and not feeling well. She went to urgent care yesterday with the symptoms and was referred to the hospital for further evaluation. She denies any chest pain cough or shortness of breath. Patient was tachycardic upon arrival but afebrile. CBC with normal WBC count normal BMP bedside test was negative. Lipase came back neck and normal liver panel showed transaminitis with elevated alkaline phospha
== END 2021-04-12 13:01 | disposition home or self-care (01) | DRG 720 ==
LOC: ANHED 20:52 → ANH3MEDSUR 22:35 → ANHSUROVER 04-11 13:21 → ANH3MEDSUR 04-13 14:17 → ANHSUROVER 04-13 14:17
PROVIDERS: Internal Medicine; Internal Medicine Gastroenterology; Physician Assistant; Admitting Provider Internal Medicine; Emergency Provider Family Medicine; PCP Family Medicine; Visit Provider Internal Medicine
DX: A41.9 Sepsis, unspecified organism (principal); N10 Acute pyelonephritis; A77.41 Ehrlichiosis chaffeensis [E. chaffeensis]; K75.9 Inflammatory liver disease, unspecified; F41.9 Anxiety disorder, unspecified; F32.A Depression, unspecified; D72.819 Decreased white blood cell count, unspecified; R59.1 Generalized enlarged lymph nodes; Z90.49 Acquired absence of other specified parts of digestive tract
CPT/HCPCS: 36415; 70450; 71045; 71046; 74177; 76705; 76775; 80048; 80053; 80074; 80076; 80307; 81001; 81025; 82104; 82164; 82390; 82728; 83520; 83605; 83690; 83735; 85025; 86038; 86140; 86430; 86666; 87040; 87086; 87088; 93005; 96361; 96365; 96367; 96374; 96375; 96376; 99285; A9270; C9113; G0378; G0379; J0131; J0696; J1170; J1885; J2060; J2405; J7030; Q9967

== ENCOUNTER 2021-06-23 15:52 | Emergency (ER) | payer OTHER, SELFPAY ==
[2021-06-23 16:00] VITALS: BP 124/70; PULSE 114; RESP 16; TEMP 36.7; O2SAT 99
--- NOTE | 2021-06-23 16:20 | ED.HEATRA ---
HPI - Head Injury General Chief complaint: Head Injury Stated complaint: FALL/HEAD INJ/CONFUSION/LOSING BALANCE/MEMORY LOSS Time Seen by Provider: 06/23/21 16:02 Source: patient and RN notes reviewed Mode of arrival: ambulatory Limitations: no limitations History of Present Illness HPI Narrative: Patient presents today complaining of head injury she sustained on 06/16/2021. States she slipped on some ice and fell backwards striking her posterior head on the ground. Denies loss of consciousness. Since that time, she has been experiencing a posterior headache, dizziness, photophobia, intermittent short-term memory problems, difficulty concentrating, intermittent fogginess , nausea. States she has vomited, but states this could also be attributed to her, liver issues. In 09/29 and has been taking ibuprofen without relief. MD Complaint: head injury and fall Related Data Home Medications Medication Instructions Recorded Confirmed clonazepam 1 mg tablet 1 mg PO HS tablet 08/18/19 04/06/21 paroxetine HCl 20 mg tablet 20 mg PO DAILY 08/18/19 04/06/21 lorazepam [Ativan] 2 mg PO BID PRN 04/05/21 04/06/21 quetiapine [Seroquel] 200 mg PO HS 04/05/21 04/06/21 Allergies Allergy/AdvReac Type Severity Reaction Status Date / Time doxycycline AdvReac Vomiting Verified 04/06/21 00:15 Review of Systems Review of Systems: CONSTITUTIONAL: Denies body aches, fever, chills, or sweats. EYES: Denies visual changes, redness, or discharge.+ Photophobia ENT: Denies rhinorrhea, congestion, sore throat, or otalgia. CARDIOVASCULAR: Denies chest pain, palpitations, or edema. RESPIRATORY: Denies cough or dyspnea. GASTROINTESTINAL: Denies abdominal pain, or diarrhea.+ Nausea and vomiting GENITOURINARY: Denies dysuria or hematuria. SKIN: Denies rash, itching, or wounds. MUSCULOSKELETAL: Denies back pain, joint pain, or myalgia.+ Neck pain NEUROLOGIC: Denies numbness, tingling, or weakness.+ Headache, memory issues PSYCH: Denies depression or anxiety. [facility] Past Medical History Medical History Cough History of pancreatitis (~2014) Malaise Nondisplaced fracture of distal end of right radius SOB (shortness of breath) Surgical History Surgical History History of appendectomy (~1999) History of cholecystectomy (~2013) Hx of tonsillectomy (~1987) Social History Social History Smoking status: Never smoker Second hand tobacco smoke exposure: Yes Alcohol intake: never Substance use: former Substance use type: marijuana Other substance usage details: irregular use Gender identity (if verbalized by the patient): Female Spiritual care concerns: No Comments At time of signature, I have reviewed and agree with nursing past medical, surgical, social and family history unless otherwise noted. Please see nursing chart for further information. There is no relevant family history pertinent to the presenting complaint Exam Narrative: GENERAL: Well-appearing, well-nourished, and in no acute distress. HEAD: Normocephalic, atraumatic. EYES: EOMI. PERRL. No redness or drainage. Conjunctivae normal. ENT: Mucous membranes pink and moist. Nares clear. NECK: Normal AROM. Supple. No lymphadenopathy. Bilateral cervical paraspinal muscle tenderness. No spinal tenderness. CHEST: No respiratory distress. Clear to auscultation. HEART: Regular rate and rhythm. No murmur appreciated. Normal peripheral pulses. EXTREMITIES: Normal range of motion. No edema. SKIN: Warm, dry, no rash. Capillary refill normal. Normal skin turgor. NEURO: No focal deficits. Alert and oriented x3. Gait steady. PSYCH: Normal affect. No signs of depression or anxiety. Course Course Level of Care: Express Care Visit Vital Signs Vital signs: Vital Signs Temperature 98.1 F 06/23/
== END 2021-06-23 16:29 | disposition home or self-care (01) ==
PROVIDERS: Emergency Provider Nurse Practitioner; PCP Family Medicine
DX: F07.81 Postconcussional syndrome (principal)
CPT/HCPCS: 99213; G0463

== ENCOUNTER 2021-12-08 22:45 | Emergency (ER) | payer OTHER, SELFPAY ==
--- NOTE | ~2021-12-08 | CT_ITS ---
EXAMINATION: CTA chest PE abdomen pel DATE: 12/09/2021 03:03 INDICATION: Shortness of breath. Upper abdominal pain. TECHNIQUE: Computed tomography angiography (CTA) of the chest was performed with 100 mL Omnipaque-350 intravenous contrast timed to evaluate the pulmonary arteries. Coronal maximum intensity projection 3D-reconstructions were created by the technologist. Computed tomography (CT) of the abdomen and pelv is was performed with intravenous contrast. Automated exposure control and iterative reconstruction t echnique were employed. The dose-length product was 717.35 mGy-cm. COMPARISON: CT abdomen and pelvis 04/05/2021 FINDINGS: CTA chest: The lungs demonstrate mild atelectasis. There is a 5 mm groundglass nodule in right upper lobe, likely benign. No pleural effusion. The heart size is normal. No pericardial effusion. There is no pulmonary embolus. There is a T12 compression fracture with 1/5 loss of height. There is a nondis placed fracture of the body of the sternum. CT abdomen and pelvis: The liver is normal. There are changes of cholecystectomy. The spleen, pancrea s, adrenal glands, and kidneys are normal. There are no dilated loops of bowel. There are changes of appendectomy. There are no pathologically enlarged lymph nodes. There is no free intraperitoneal flui d. The bones are unremarkable. IMPRESSION: 1. No pulmonary embolus. 2. T12 compression fracture, likely acute or subacute. 3. Nondisplaced fracture of the body of the sternum. Reviewed, dictated and finalized at location A.
[2021-12-08 23:01] VITALS: BP 109/75; PULSE 68; RESP 16; TEMP 36.1; O2SAT 99
[2021-12-08 23:18] VITALS: BP 107/87; PULSE 98; RESP 19; O2SAT 99
--- NOTE | 2021-12-08 23:23 | ECG_ITS ---
Measurements Intervals [place] Rate: 0 P: GA: 0 QRS: QRSD: 0 T: QT: 0 QTc: 0 Interpretive Statements NORMAL SINUS RHYTHM NORMAL EKG COMPARED TO ECG 04/06/2021 14:46:31 NO SIGNIFICANT CHANGES Electronically Signed On 12-09-2021 13:37:15 CDT by Maryellen Horn M.D.
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
[2021-12-08 23:31] VITALS: BP 99/77; PULSE 94; RESP 19; O2SAT 99
[2021-12-08] MEDS: MORPHINE SULFATE (*CRX) 4 MG/ML INJ IV PUSH (23:42)
[2021-12-08] MEDS: SODIUM CHLORIDE 0.9% IV 1,000 ML 999 ML IV CONT (23:42)
[2021-12-08 23:51] LABS: Basophils Percent Auto 0.5 % (0.2-1.2); Eosinophils Absolute Auto 0.1 K/mm3 (0-0.3); Eosinophils Percent Auto 1.1 % (0-4.4); Hematocrit 37.6 % (37.0-47.0); Immature Granulocyte Absolute 0.02 K/mm3 (0.00-0.031); Immature Granulocyte Percent A 0.3 % (0-0.5); Lymphocytes Percent Auto 34.8 % (18.3-44.2); Mean Corpuscular HGB Conc 34.6 g/dl (32-36); Mean Corpuscular Hemoglobin 32.4 pg (26-34); Mean Corpuscular Volume 93.8 fl (80-100); Mean Platelet Volume 10.2 fl (7.4-10.4); Monocytes Absolute Auto 0.4 K/mm3 (0.1-0.6); Monocytes Percent Auto 5.8 % (2.6-8.5); Neutrophils Absolute Auto 3.6 K/mm3 (1.3-6.7); Neutrophils Percent Auto 57.5 % (45.5-73.1); Platelet Count Result 272 k/mm3 (150-375); Red Blood Count 4.01 M/mm3 (4.2-5.4); Red Cell Distribution Width 12.3 % (11.5-14.5); White Blood Count 6.3 K/mm3 (4.5-10.0)
[2021-12-09] VITALS (19 sets, daily range): BP systolic 100–134; BP diastolic 75–96; PULSE 81–101; RESP 11–22; O2SAT 96–100
[2021-12-09 00:01] LABS: Alanine Aminotransferase 24 U/L (6-35); Albumin Level 4.3 g/dL (3.5-5.1); Alkaline Phosphatase 83 U/L (38-126); Anion Gap 11 mmol/L (8-16); Aspartate Amino Transferase 27 U/L (14-36); Bilirubin,Total 0.2 mg/dL (0.2-1.3); Blood Urea Nitrogen 12 mg/dL (7-17); Calcium 9.4 mg/dL (8.4-10.2); Carbon Dioxide 25 mmol/L (22-30); Chloride 103 mmol/L (98-107); Estimated CRCL calculation 68 ml/min; Estimated Glomerular Filt Rate > 60; Glucose 113 mg/dL (65-110); Lipase 66 U/L (23-300); Potassium 2.9 mmol/L (3.4-5.0); Sodium 139 mmol/L (137-145)
[2021-12-09 00:02] LABS: Prothrombin Time 13.2 Seconds (11.1-14.7)
[2021-12-09 00:03] LABS: Partial Thromboplastin Time 28.2 SECONDS (22.3-36.8)
[2021-12-09 00:12] LABS: Troponin I < 0.012 ng/mL (0.000-0.034)
[2021-12-09 01:00] LABS: Magnesium 2.1 mg/dL (1.6-2.3)
[2021-12-09] MEDS: POTASSIUM CHLORIDE 20 MEQ TABLET 40 MEQ PO (01:27)
[2021-12-09 03:16] LABS: Troponin I < 0.012 ng/mL (0.000-0.034)
[2021-12-09] MEDS: KETOROLAC 30 MG/ML VIAL (*BKC) IV PUSH (03:31)
== END 2021-12-09 05:30 | disposition home or self-care (01) ==
PROVIDERS: Emergency Provider Emergency Medicine; PCP Family Medicine
DX: S22.080A Wedge compression fracture of T11-T12 vertebra, initial encounter for closed fracture (principal); S22.22XA Fracture of body of sternum, initial encounter for closed fracture; V49.9XXA Car occupant (driver) (passenger) injured in unspecified traffic accident, initial encounter
CPT/HCPCS: 36415; 71275; 74177; 80053; 81025; 83690; 83735; 84484; 85025; 85610; 85730; 93005; 96361; 96374; 99284; A9270; J1885; J2270; J7030; Q9967

== ENCOUNTER 2022-03-18 08:58 | Observation (INO) | payer OTHER, SELFPAY ==
[2022-03-18] VITALS (10 sets, daily range): BP systolic 94–130; BP diastolic 64–87; PULSE 74–97; RESP 15–17; TEMP 36.3–37.1; O2SAT 98–100; BMI 27.3
--- NOTE | ~2022-03-18 | CT_ITS ---
EXAMINATION: CTA brain carotid DATE: 03/18/2022 10:25 INDICATION: Dizziness. Ataxia. Slurred speech. Headache. TECHNIQUE: Computed tomographic angiography (CTA) of the head was performed without and with 100 mL O mnipaque-350 intravenous contrast. CTA of the neck was performed with intravenous contrast. Automated exposure control and iterative reconstruction technique were employed. The dose-length product was 1 637.36 mGy-cm. Maximum intensity projection and volume rendered 3D-reconstructions were created by criss cedillo technologist on a separate workstation. COMPARISON: Head CT 04/08/2021 FINDINGS: HEAD CTA: There is no intracranial hemorrhage, acute infarction, or abnormal intracranial mass lesion . The ventricles are normal in size. There is mild mucosal thickening in the paranasal sinuses. The o rbits are normal. The mastoid air cells are normal. The vertebral arteries are codominant. There is n o significant stenosis of basilar artery or the posterior cerebral arteries. There is no significant stenosis of the intracranial internal carotid arteries or anterior or middle cerebral arteries. Anter ior communicating artery is normal. The posterior communicating arteries are normal. There is no aneu rysm. NECK CTA: There are no pathologically enlarged lymph nodes. There is no significant stenosis of the v ertebral arteries. There is plaque in the proximal internal carotid arteries. There is 0% stenosis of the proximal right internal carotid artery relative to normal distal artery lumen diameter (NASCET c riteria). There is 0% stenosis of the proximal left internal carotid artery relative to normal distal artery lumen diameter. There is enlargement of the lingual tonsils. There is extensive dental diseas e. There is mild thoracic spondylosis. IMPRESSION: 1. Normal brain. No aneurysm or significant intracranial arterial stenosis. 2. 0% stenosis of the proximal internal carotid arteries relative to normal distal artery lumen diame ters (NASCET criteria). 3. Extensive dental disease. 4. Enlargement of the lingual tonsils. Reviewed, dictated and finalized at location A. AVENOUS THERAPY NURSE IMPRESSION: 1. Normal brain. No aneurysm or significant intracranial arterial stenosis. 2. 0% stenosis of the proximal internal carotid arteries relative to normal dis amador artery lumen diameters (NASCET criteria). 3. Extensive dental disease. 4. Enlargement of the lingual tonsils.
--- NOTE | ~2022-03-18 | MR_ITS ---
EXAMINATION: MR brain/brain stem wo/w con DATE: 03/19/2022 10:40 INDICATION: Ataxia TECHNIQUE: Magnetic resonance imaging (MRI) of the brain and brainstem was performed without intraven ous contrast. Sequences included sagittal and axial T1-weighted SE, axial diffusion-weighted FS SE, a xial T2*-weighted GRE, axial T2-weighted FLAIR Propeller, and axial T2-weighted Propeller. Apparent d iffusion coefficient (ADC) maps were created. COMPARISON: CTA brain carotid dated 03/18/2022. FINDINGS: There is normal brain parenchymal volume. No acute infarction, hemorrhage, mass or mass eff ect. No ventriculomegaly or midline shift. Paranasal sinuses are unremarkable. Midline sagittal image s are unremarkable. Orbits are symmetric without disconjugate gaze. IMPRESSION: 1. Unremarkable MRI of the brain. Reviewed, dictated and finalized at location A. DMARE BARN GROOM
--- NOTE | ~2022-03-18 | XR_ITS ---
XR chest 2V DATE: 03/18/2022 09:25 INDICATION: Chest pain, shortness of breath. Headaches. TECHNIQUE: PA and lateral views COMPARISON: 12/09/2021 CTA chest FINDINGS: Normal heart size. No hilar or mediastinal enlargement. No pulmonary infiltrate or consolid ation, pleural effusion or pulmonary vascular congestion or pneumothorax. Included skeletal structures are unremarkable. IMPRESSION: No active cardiopulmonary disease Reviewed, dictated and finalized at location A. HER BOWLING BALL
--- NOTE | 2022-03-18 09:02 | ECG_ITS ---
Measurements Intervals [place] Rate: 92 P: 15 NV: 168 QRS: 74 QRSD: 86 T: 36 QT: 380 QTc: 471 Interpretive Statements SINUS RHYTHM NORMAL ECG COMPARED TO ECG 12/08/2021 23:39:51 NO SIGNIFICANT CHANGES Electronically Signed On 03-18-2022 9:23:46 EXTENSION SUPERVISOR by Marcellus Vasquez D.O.
--- NOTE | 2022-03-18 09:10 | ED.DIZZY ---
HPI - Dizziness General Chief Complaint: Dizziness <BEBE Acuna Last Filed: 03/18/22 15:50> Stated Complaint: DIZZY VOMITING CHEST DISCOMFORT <BEBE Acuna Last Filed: 03/18/22 15:50> Time Seen by Provider: 03/18/22 09:07 <BEBE Acuna Last Filed: 03/18/22 15:50> History of Present Illness HPI Narrative: Patient is a 41-year-old female here for evaluation of multiple medical complaints. Patient states over the past several days she has felt unwell with dizziness, weakness, and an ataxic gait. Patient reports a severe frontal headache that is throbbing in nature, unrelieved by Tylenol. She has a history of migraine headache but denies similar symptoms. Decided come in today when she developed some chest pain, nausea and vomiting. Does note an epigastric discomfort after vomiting. No fevers, chills, cough, congestion, shortness of breath or leg swelling. <BEBE Acuna Last Filed: 03/18/22 15:50> Related Data Home Medications: Home Medications Medication Instructions Recorded Confirmed clonazepam 1 mg tablet (Klonopin) 1 mg PO HS 08/18/19 03/18/22 paroxetine HCl 20 mg tablet (Paxil) 20 mg PO DAILY 08/18/19 03/18/22 lorazepam 2 mg tablet (Ativan) 2 mg PO TID PRN Anxiety 04/05/21 03/18/22 quetiapine 200 mg tablet (Seroquel) 300 mg PO HS 04/05/21 03/18/22 <BEBE Acuna Last Filed: 03/18/22 15:50> Allergies/Adverse Reactions: Allergies Allergy/AdvReac Type Severity Reaction Status Date / Time doxycycline AdvReac Vomiting Verified 12/08/21 23:20 <BEBE Acuna Last Filed: 03/18/22 15:50> Review of Systems Review of Systems: Gen: Denies fevers or chills Eyes: Denies eye pain or visual change ENT: Denies congestion Respiratory: Denies shortness of breath or cough CV: Reports chest pain. GI: Reports epigastric pain and nausea and vomiting. denies burning, urgency, frequency or hematuria Musculoskeletal: Denies back pain or muscle pain Neuro: Reports headache, weakness and dizziness. Denies numbness, tingling Skin: Denies rash Except as documented, all other systems reviewed and negative <Ana Paula Sainz PA-C - Last Filed: 03/18/22 15:50> [facility] Past Medical History Medical History: Medical History Depression History of pancreatitis (~2014) Leukopenia Nondisplaced fracture of distal end of right radius Pyelonephritis Sepsis Transaminitis <Ana Paula Sainz PA-C - Last Filed: 03/18/22 15:50> Surgical History Surgical History: Surgical History History of appendectomy (~1999) History of cholecystectomy (~2013) Hx of tonsillectomy (~1987) <Ana Paula Sainz PA-C - Last Filed: 03/18/22 15:50> Family History Family History: Family History Father Malignant neoplasm of prostate Grandparent Lung cancer <Ana Paula Sainz PA-C - Last Filed: 03/18/22 15:50> Social History Social History: Social History Social History: The patient is and has 2 children. She currently works for [employer] she is a lifelong nonsmoker. She does use marijuana. She denies any alcohol use. 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 Code status full code Smoking status: Never smoker Second hand tobacco smoke exposure: Yes Alcohol intake: never Substance use: former Substance use type: marijuana Other substance usage details: irregular use Lack of Transportation: YES Lack of Food: Sometimes True Current Housing: I Have Housing Concerned About Future Housing: No Difficulty Paying Gas/Electric Bills: No Difficulty Paying for Meds: YES Currently Unemployed: No Education: Associate Degree Difficulty w/ Childc
[2022-03-18 09:28] LABS: Basophils Percent Auto 0.2 % (0.2-1.2); Eosinophils Absolute Auto 0.1 K/mm3 (0-0.3); Eosinophils Percent Auto 1.1 % (0-4.4); Hemoglobin 13.5 g/dL (12.0-15.0); Immature Granulocyte Absolute 0.03 K/mm3 (0.00-0.031); Immature Granulocyte Percent A 0.4 % (0-0.5); Lymphocytes Absolute Auto 1.06 K/mm3 (0.9-3.2); Mean Corpuscular HGB Conc 32.9 g/dl (32-36); Mean Corpuscular Hemoglobin 31.4 pg (26-34); Mean Corpuscular Volume 95.3 fl (80-100); Mean Platelet Volume 10.7 fl (7.4-10.4); Monocytes Absolute Auto 0.3 K/mm3 (0.1-0.6); Monocytes Percent Auto 3.4 % (2.6-8.5); Neutrophils Absolute Auto 6.7 K/mm3 (1.3-6.7); Neutrophils Percent Auto 81.9 % (45.5-73.1); Platelet Count Result 233 k/mm3 (150-375); Red Cell Distribution Width 11.9 % (11.5-14.5); White Blood Count 8.1 K/mm3 (4.5-10.0)
[2022-03-18 09:36] LABS: Appearance Urine Slightly Cloudy (Clear); Bilirubin Urine Negative (Negative); Blood Urine Trace-intact (Negative); Color Urine Yellow (Yellow); Glucose Urine UA Negative (Negative); Ketones Urine Negative (Negative); Leukocyte Esterase Ur 2+ LEU/UL (Negative); Nitrate Urine Negative (Negative); Protein Urine Negative (Negative); Specific Grav Ur 1.015 (1.001-1.035); Urobilinogen Urine 0.2 mg/dL (<2.0); pH Urine 6.5 (5.0-9.0)
[2022-03-18 09:38] LABS: Prothrombin Time 12.9 Seconds (11.1-14.7)
[2022-03-18 09:39] LABS: Partial Thromboplastin Time 20.9 SECONDS (22.3-36.8)
[2022-03-18 09:40] LABS: Alanine Aminotransferase 16 U/L (6-35); Alkaline Phosphatase 72 U/L (38-126); Anion Gap 9 mmol/L (8-16); Aspartate Amino Transferase 21 U/L (14-36); Bilirubin,Total 0.3 mg/dL (0.2-1.3); Blood Urea Nitrogen 10 mg/dL (7-17); Carbon Dioxide 25 mmol/L (22-30); Chloride 106 mmol/L (98-107); Estimated CRCL calculation 78 ml/min; Estimated Glomerular Filt Rate > 60; Glucose 106 mg/dL (65-110); Lipase 29 U/L (23-300); Potassium 3.9 mmol/L (3.4-5.0); Sodium 140 mmol/L (137-145)
[2022-03-18] MEDS: SODIUM CHLORIDE 0.9% IV 1,000 ML 999 ML IV CONT (09:48)
[2022-03-18] MEDS: PROCHLORPERAZINE EDISYLATE 10 MG/2 ML VIAL IV PUSH (09:48)
[2022-03-18] MEDS: diphenhydrAMINE HCl INJ 50 MG/ML VIAL 12.5 MG IV PUSH (09:48)
[2022-03-18 09:50] LABS: Bacteria Urine Trace /hpf; Squamous Epithelial Cell Urine Many /hpf (Few); Transitional Epi Cells Urine Rare /hpf (None Seen); Troponin I < 0.012 ng/mL (0.000-0.034); WBC Urine 21-30 /hpf
[2022-03-18 09:52] LABS: Add Urine Microscopic? YES
[2022-03-18] MEDS: FAMOTIDINE 20 MG/2 ML VIAL IV PUSH (11:24)
[2022-03-18] MEDS: KETOROLAC 15 MG/ML VIAL (*BKC) IV PUSH (11:24)
[2022-03-18 11:55] LABS: Influenza A QL RT-PCR Negative (Negative); Influenza B QL RT-PCR Negative (Negative); SARS-CoV-2 RNA PCR Negative
[2022-03-18 12:52] LABS: Troponin I < 0.012 ng/mL (0.000-0.034)
--- NOTE | 2022-03-18 14:17 | PC.NURSE ---
called laboratory, will add UDS to u/a that is currently in lab
[2022-03-18 14:39] LABS: Amphetamine Screen Urine Negative (Negative); Barbiturate Screen Urine Negative (Negative); Benzodiazepines Screen Urine Negative (Negative); Cannabinoid Screen Urine Positive (Negative); Cocaine Screen Urine Negative (Negative); Methadone Screen Urine Negative (Negative); Opiate Screen Urine Negative (Negative); Phencyclidine Screen Urine Negative (Negative)
--- NOTE | 2022-03-18 14:53 | PM.IMHP ---
H&P: HPI History of Present Illness Date/Time: 03/18/22 14:53 Chief Complaint: Dizziness Narrative: This is a 41-year-old female patient that stated she had a fever approximately 2 weeks ago. She has been having a severe headache for the last 2 weeks. However over the last 2 days she has felt more dizzy, weak and having ataxia. The patient stated that she has been using Tylenol for her headache which is not relieved. She also had some epigastric discomfort after vomiting. She also complains of tenderness to the back of her head but she is able to have full mobility of her neck and her head as well as all of her extremities. The patient states that she feels very weak and her legs get wobbly and she feels like she is losing the ability to it use her legs. She also stated that occasionally she has some blurred vision. The patient is currently afebrile. She has no nuchal rigidity. Chest x-ray was read as no acute cardiopulmonary disease. Head and neck CTA results are pending. Troponins are negative x2. She is positive for cannabis. She was also positive for UTI and was started on Rocephin. The patient is being admitted to observation status on the date of service of 03/18/2022 Review of Systems Review of Systems: See HPI All systems reviewed & are unremarkable except as noted in HPI and below Constitutional: Constitutional: Reports as per HPI and Reports no additional constitutional complaints Eyes: Eyes: Reports as per HPI and Reports no additional eye complaints ENT: Reports system reviewed and no additional complaints, except as documented and Reports Normal hearing present Cardiovascular: Cardiovascular: Reports no additional cardiovascular complaints Respiratory: Respiratory: Reports no additional respiratory complaints and Reports no additional respiratory complaints Gastrointestinal: Gastrointestinal: Reports as per HPI and Reports no additional gastrointestinal complaints Musculoskeletal: Musculoskeletal: Reports no additional musculoskeletal complaints Integumentary/Breasts: Skin/Breast: Reports system reviewed and no additional complaints, except as docu and Reports as per HPI Neurologic: Reports system reviewed and no additional complaints, except as documented, Reports as per HPI and Reports Normal hearing present Psychiatric: Psychiatric: Reports no additional psychiatric complaints and Reports as per HPI Endocrine: Endocrine: Reports no additional endocrine complaints Hematologic/Lymphatic: Hematologic/Lymphatic: Reports no additional hematologic/lymphatic complaints Allergic/Immunologic: Allergic/Immunologic: Reports no additional allergic/immunologic complaints [facility] Past Medical History Medical History (Updated 03/18/22 @ 17:05 by Kallie Mahajan NP) Depression History of pancreatitis (~2014) Leukopenia Nondisplaced fracture of distal end of right radius Pyelonephritis Sepsis Transaminitis Surgical History Surgical History History of appendectomy (~1999) History of cholecystectomy (~2013) Hx of tonsillectomy (~1987) Family History Family History (Updated 03/18/22 @ 14:56 by Kallie Mahajan NP) Father Malignant neoplasm of prostate Grandparent Lung cancer Social History Social History (Updated 03/18/22 @ 16:26 by Kallie Mahajan NP) Social History: The patient is and has 2 children. She currently works for [employer] she is a lifelong nonsmoker. She does use marijuana. She denies any alcohol use. She denies any durable power erisa attorney for healthcare. Code status full code Smoking status: Never smoker Second hand tobacco smoke exposure: Yes Alcohol intake: never Substance use: former Substance use type: marijuana Other substance usage details: irregular use Lack of Transportation: YES Lack of Food: Sometimes True Current Housing: I Have Housing Concerned About Future Housing: No Diffic
--- NOTE | 2022-03-18 16:28 | ADMGEN ---
This patient, Melissa Hebert, was admitted to [facility] S[facility] Room 309-01 at 1620. Patient/family oriented to hospital policies and general routines including ID bracelet, bed and alarms, visiting hours, pain management, procedures, bathroom and other care routines, personal items, smoking policy, room service/diet, and visiting hours. Information on how to activate the Rapid Response Team has been discussed. Patient/Family are encouraged to report perceived risks to care and to ask questions if they do not understand what they are told or what they should do.
[2022-03-18] MEDS: LORazepam (*CRX) 1 MG TABLET 2 MG PO (18:23)
[2022-03-18] MEDS: QUEtiapine FUMARATE 100 MG TABLET 300 MG PO (20:24)
[2022-03-18] MEDS: clonazePAM (*CRX) 0.5 MG TABLET 1 MG PO (20:24)
[2022-03-18] MEDS: SUMAtriptan SUCCINATE 6 MG/0.5 ML VIAL SUB-Q (20:25)
[2022-03-19] MEDS: IBUPROFEN 400 MG TABLET 800 MG PO ×2 (03:44→17:53)
[2022-03-19] MEDS: SUMAtriptan SUCCINATE 6 MG/0.5 ML VIAL SUB-Q ×2 (04:41→22:05)
[2022-03-19] MEDS: TRIMETHOBENZAMIDE HCL 200 MG/2 ML VIAL IM (04:42)
[2022-03-19 06:08] VITALS: BP 97/64; PULSE 72; RESP 16; TEMP 36.2; O2SAT 97
[2022-03-19 07:19] LABS: Basophils Percent Auto 0.3 % (0.2-1.2); Eosinophils Absolute Auto 0.1 K/mm3 (0-0.3); Eosinophils Percent Auto 1.7 % (0-4.4); Hematocrit 36.9 % (37.0-47.0); Hemoglobin 12.3 g/dL (12.0-15.0); Immature Granulocyte Absolute 0.03 K/mm3 (0.00-0.031); Immature Granulocyte Percent A 0.4 % (0-0.5); Lymphocytes Absolute Auto 1.61 K/mm3 (0.9-3.2); Lymphocytes Percent Auto 22.7 % (18.3-44.2); Mean Corpuscular HGB Conc 33.3 g/dl (32-36); Mean Corpuscular Hemoglobin 31.7 pg (26-34); Mean Corpuscular Volume 95.1 fl (80-100); Mean Platelet Volume 11.1 fl (7.4-10.4); Monocytes Absolute Auto 0.4 K/mm3 (0.1-0.6); Monocytes Percent Auto 5.2 % (2.6-8.5); Neutrophils Percent Auto 69.7 % (45.5-73.1); Platelet Count Result 259 k/mm3 (150-375); Red Blood Count 3.88 M/mm3 (4.2-5.4); White Blood Count 7.1 K/mm3 (4.5-10.0)
[2022-03-19 07:22] LABS: Lactic Acid Reflex 1.1 mmol/L (0.7-2.0)
[2022-03-19 07:41] LABS: Alanine Aminotransferase 15 U/L (6-35); Alkaline Phosphatase 64 U/L (38-126); Anion Gap 9 mmol/L (8-16); Aspartate Amino Transferase 22 U/L (14-36); Bilirubin,Total 0.3 mg/dL (0.2-1.3); Blood Urea Nitrogen 11 mg/dL (7-17); Calcium 8.8 mg/dL (8.4-10.2); Carbon Dioxide 24 mmol/L (22-30); Chloride 106 mmol/L (98-107); Estimated CRCL calculation 69 ml/min; Estimated Glomerular Filt Rate > 60; Glucose 93 mg/dL (65-110); Magnesium 2.2 mg/dL (1.6-2.3); Potassium 4.1 mmol/L (3.4-5.0); Sodium 139 mmol/L (137-145)
[2022-03-19 08:23] VITALS: BP 120/82
[2022-03-19] MEDS: PARoxetine 20 MG TABLET PO (08:52)
[2022-03-19] MEDS: LORazepam (*CRX) 1 MG TABLET 2 MG PO (09:05)
--- NOTE | 2022-03-19 11:57 | PC.NURSE ---
This nurse received a phone call from Andrey in [facility] around 10:50 am. States patient is lethargic and drooling on self. States transport is on way with patient. Upon arrival and assessment, patient found laying supine on stretcher and lethargic. Patient able to answer all orientation questions appropriately when asked. Slurred and slightly delayed speech noted. Smile, hand cat sitter, foot pushes equal and appropriate. VSS. 97.8 axillary, 112/70 manual pressure, RR 18, SPOP2 98% on room air, heart rate 102. Hospitalist made aware. 3 pill bottles noted sitting on top of clothing items in personal bag sitting on couch. A bottle of Klonopin, Ativan, and Seroquel noted. Narcotics counted with charge nurse and placed in Pyxis. Patient made aware. When asked, patient denies taking any pills from her pill bottles. Later patent asked about taking medication and patient states took 1 pill of Klonopin when hospitalist at bedside. Denies and SI when asked. Patient laying High Fowlers in bed and oriented to call light. Will continue to monitor.
--- NOTE | 2022-03-19 12:55 | WPDNEURCNPN ---
Assessment and Plan Assessment and plan (1) Altered mental status: Code(s): R41.82 - Altered mental status, unspecified Status: Acute Plan considering her CTA of the head was negative psoas the MRI of the brain without evidence of any demyelinating disease or space-occupying lesion and normal x-ray of the chest no further neurological intervention was carried out she was discharged with instructions for the supportive care and adjustment of the antipsychotic medications accordingly Consult date: 03/21/22 Reason for consult: 41 years old right-handed female has been admitted to [facility] through the emergency room for the complaints of dizziness along with vomiting and chest discomfort. Patient has not been feeling well over the last several days mainly complaining of dizziness and weakness and ataxic gait along with the severe frontal headaches which was described as throbbing in nature and not responding to the simple Tylenol medications she has never had this symptomatology in the past she also complained of chest discomfort with nausea and vomiting in addition to epigastric discomfort. Patient has been receiving clonazepam 1 mg at night, paroxetine 20 mg daily, lorazepam 2 mg b.i.d. p.r.n., Seroquel 200 mg at night, also listed 100 mg she is reportedly allergic to doxycycline. She does have ongoing history of depression, she is a never smoker or alcohol intake her and her initial examination in the emergency room was nonfocal. Her vital signs were normal, CBC was normal, basic metabolic panel was normal, and drug screen was positive only for cannabinoids, head neck CTA documents no aneurysm and no territorial occlusion also her brain MRI is normal Review of Systems Review of Systems: All systems reviewed & are unremarkable except as noted in HPI and below PMFSH Past Medical History Medical History Depression History of pancreatitis (~2014) Leukopenia Nondisplaced fracture of distal end of right radius Pyelonephritis Sepsis Transaminitis Surgical History Surgical History History of appendectomy (~1999) History of cholecystectomy (~2013) Hx of tonsillectomy (~1987) Family History Family History Father Malignant neoplasm of prostate Grandparent Lung cancer Social History Social History Social History: The patient is and has 2 children. She currently works for [employer] she is a lifelong nonsmoker. She does use marijuana. She denies any alcohol use. 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 Code status full code Smoking status: Never smoker Second hand tobacco smoke exposure: Yes Alcohol intake: never Substance use: former Substance use type: marijuana Other substance usage details: irregular use Lack of Transportation: YES Lack of Food: Sometimes True Current Housing: I Have Housing Concerned About Future Housing: No Difficulty Paying Gas/Electric Bills: No Difficulty Paying for Meds: YES Currently Unemployed: No Education: Associate Degree Difficulty w/ Childcare or Family Care: No Gender identity (if verbalized by the patient): Female Spiritual care concerns: No Meds Home Medications and Allergies Home Medications Medication Instructions Recorded Confirmed Type clonazepam 1 mg tablet (Klonopin) 1 mg PO HS 08/18/19 03/18/22 History paroxetine HCl 20 mg tablet (Paxil) 20 mg PO DAILY 08/18/19 03/18/22 History ibuprofen 800 mg tablet 800 mg PO Q6H PRN pain #30 tabs 03/21/20 03/18/22 Rx lorazepam 2 mg tablet (Ativan) 2 mg PO TID PRN Anxiety 04/05/21 03/18/22 History quetiapine 200 mg tablet (Seroquel) 300 mg PO HS 04/05/21 03/18/22 History Allergies Allergy/AdvReac Type Severity Reaction Status Date / Time doxycycline AdvReac Vomit
--- NOTE | 2022-03-19 13:26 | PM.IMPN ---
Progress Note: A&P Assessment and Plan (1) Altered mental status: Code(s): R41.82 - Altered mental status, unspecified Status: Acute Assessment and Plan: Patient was given Seroquel 300mg and Klonopin 1 mg last night but these are home medications. Overnight she was given Imitrex x2 and Tigan x1 for migraine. She was given 2 mg of lorazepam po this morning prior to the MRI (lorazepam 2mg TID prn also a home medication). It also appears that she took her Klonopin this morning unbeknownst to the staff. Most likely her mental status changes related to medications. MRI does not show any acute findings. Continue supportive care. Will not give reversible agents given the fact she is hemodynamically stable and she has a long history of benzodiazepine use. Will hold benzodiazepines until she is more awake and alert. (2) Ataxia: Code(s): R27.0 - Ataxia, unspecified Status: Acute Assessment and Plan: Patient presents with dizziness. CTA head and neck showing no aneurysm or significant intracranial arterial stenosis. She does have extensive dental disease and enlargement of the lingual tonsils. However the patient stated that she had her tonsils removed. Influenza and COVID negative. Brain MRI showing no acute findings. The patient has a history of a T12 compression fracture and MRI of the thoracic spine ordered. Symptoms could be psycho somatic related to her anxiety and depression and/or from complex migraines. PT and OT to evaluate and treat. Appreciate neurology input. (3) Depression: Code(s): F32.A - Depression, unspecified Status: Acute Assessment and Plan: Unable to assess. Continue Paxil and Seroquel. Klonopin on hold. (4) Anxiety: Code(s): F41.9 - Anxiety disorder, unspecified Status: Acute Assessment and Plan: As above. (5) UTI (urinary tract infection): Code(s): N39.0 - Urinary tract infection, site not specified Status: Acute Assessment and Plan: UA noted. Urine and blood cultures collected. Cultures are pending. Continue Rocephin for now. Subjective Date/time seen: 03/19/22 13:26 Interval history: 41yo female with anxiety and depression here for dizziness. Patient was given Ativan this morning prior to MRI but discovered later that she took her Klonopin from home. She is hemodynamically stable but difficult to arouse. H unreliable at this tme. Review of Systems Review of Systems: ROS unobtainable: Yes unobtainable due to mental status Exam Narrative: AF 97.2 120/82 72 16 97 % ra Gen - NARD Chest - CTA bilaterally, nml RR CV - RRR S1/S2; Tele showing no significant dysrhythmias Abd - Soft, NT/ND, Positive BS Ext - No pedal edema Neuro - somnolent but arouses. mumbles a few answers and does admit to taking Klonopin. Skin - Warm and dry Objective Data Vital Signs Vital Signs: Vital Signs - 24 hr 03/18/22 13:37 03/18/22 13:39 03/18/22 13:40 Temperature Pulse Rate 97 92 91 Respiratory Rate Blood Pressure 116/87 108/82 130/77 Pulse Oximetry Oxygen Delivery 03/18/22 14:07 03/18/22 15:42 03/18/22 22:05 Temperature 97.4 F L Pulse Rate 88 75 74 Respiratory Rate 17 16 16 Blood Pressure 114/84 109/87 94/64 L Pulse Oximetry 98 98 98 Oxygen Delivery 03/19/22 06:08 03/19/22 08:23 03/19/22 08:00 Temperature 97.2 F L Pulse Rate 72 Respiratory Rate 16 Blood Pressure 97/64 L 120/82 Pulse Oximetry 97 Oxygen Delivery Room Air Intake/Output Intake/Output: Intake & Output 03/16/22 03/17/22 03/18/22 03/19/22 23:59 23:59 23:59 23:59 Intake Total 1350 690 Output Total 200 500 Balance 1150 190 Meds/Results Medications: Active Medications Generic Name Dose Route Start Last Admin Trade Name Blaiseq PRN Reason Stop Dose Admin Clonazepam 1 mg 03/18/22 21:00 03/18/22 20:24 Clonazepam (*Crx) 0.5 Mg Tablet PO 1 mg HS PIYUSH
[2022-03-19 14:00] VITALS: BP 116/68; PULSE 106; RESP 14; TEMP 36.2; O2SAT 98
[2022-03-19] MEDS: QUEtiapine FUMARATE 100 MG TABLET 300 MG PO (20:32)
[2022-03-19 22:00] VITALS: BP 102/71; PULSE 85; RESP 18; TEMP 36.3; O2SAT 97
[2022-03-20] MEDS: IBUPROFEN 400 MG TABLET 800 MG PO (05:07)
[2022-03-20 06:00] VITALS: BP 110/76; PULSE 97; RESP 18; TEMP 36.6; O2SAT 97
[2022-03-20] MEDS: PARoxetine 20 MG TABLET PO (08:50)
--- NOTE | 2022-03-20 08:56 | PM.DS ---
DS: Admitting Diagnosis Discharge Date March 20, 2022 Admitting Diagnosis Altered mental status DS: Discharge Diagnosis Discharge Diagnosis (1) Altered mental status: Code(s): R41.82 - Altered mental status, unspecified Status: Acute Assessment and Plan: Patient was given Seroquel 300mg and Klonopin 1 mg last night but these are home medications. Overnight she was given Imitrex x2 and Tigan x1 for migraine. She was given 2 mg of lorazepam po this morning prior to the MRI (lorazepam 2mg TID prn also a home medication). It also appears that she took her Klonopin this morning unbeknownst to the staff. Most likely her mental status changes related to medications. MRI does not show any acute findings. Continue supportive care. Will not give reversible agents given the fact she is hemodynamically stable and she has a long history of benzodiazepine use. Will hold benzodiazepines until she is more awake and alert. (2) Ataxia: Code(s): R27.0 - Ataxia, unspecified Status: Acute Assessment and Plan: Patient presents with dizziness. CTA head and neck showing no aneurysm or significant intracranial arterial stenosis. She does have extensive dental disease and enlargement of the lingual tonsils. However the patient stated that she had her tonsils removed. Influenza and COVID negative. Brain MRI showing no acute findings. The patient has a history of a T12 compression fracture and MRI of the thoracic spine ordered. Symptoms could be psycho somatic related to her anxiety and depression and/or from complex migraines. PT and OT to evaluate and treat. Appreciate neurology input. (3) Depression: Code(s): F32.A - Depression, unspecified Status: Acute Assessment and Plan: Unable to assess. Continue Paxil and Seroquel. Klonopin on hold. (4) Anxiety: Code(s): F41.9 - Anxiety disorder, unspecified Status: Acute Assessment and Plan: As above. (5) UTI (urinary tract infection): Code(s): N39.0 - Urinary tract infection, site not specified Status: Acute Assessment and Plan: UA noted. Urine and blood cultures collected. Cultures are pending. Continue Rocephin for now. Plan DVT prophylaxis with SCDs GI prophylaxis not indicated Code status full code DS: Summary Hospital Course Hospital Course: 41-year-old female patient that stated she had a fever approximately 2 weeks ago.? She has been having a severe headache for the last 2 weeks.? However over the last 2 days she has felt more dizzy, weak and having ataxia.? The patient stated that she has been using Tylenol for her headache which is not relieved.? She also had some epigastric discomfort after vomiting.? She also complains of tenderness to the back of her head but she is able to have full mobility of her neck and her head as well as all of her extremities.? The patient states that she feels very weak and her legs get wobbly and she feels like she is losing the ability to it use her legs.? She also stated that occasionally she has some blurred vision.? The patient is currently afebrile.? She has no nuchal rigidity.? Chest x-ray was read as no acute cardiopulmonary disease.? Head and neck CTA results are pending.? Troponins are negative x2.? She is positive for cannabis.? She was also positive for UTI and was started on Rocephin. Urine culture still pending, no symptoms for UTI, due to multiple squamous epithelial cells noted on urinalysis, UTI is less likely. Will discharge on no antibiotics, follow-up urine culture outpatient. Appreciate neurology consultation, no significant acute etiology to patient's altered mental status. Brain MRI within 12 minutes. Altered mental status to be secondary to polypharmacy, resolved. Time Spent with Patient Time attestation: Total time spent providing and/or coordinating discharge services: DS: Data Data Completed and Pending Labs on day o
[2022-03-20] MEDS: SUMAtriptan SUCCINATE 6 MG/0.5 ML VIAL SUB-Q (09:30)
== END 2022-03-20 11:35 | disposition home or self-care (01) ==
LOC: ANHED 15:14 → ANH3MEDSUR 17:22
PROVIDERS: Nurse Practitioner; Physician Assistant; Admitting Provider Internal Medicine; Emergency Provider Emergency Medicine; PCP Family Medicine; Visit Provider Student in an Organized Health Care Education/Training Program
DX: R41.82 Altered mental status, unspecified (principal); R27.0 Ataxia, unspecified; F32.A Depression, unspecified; R41.9 Unspecified symptoms and signs involving cognitive functions and awareness; N39.0 Urinary tract infection, site not specified; R53.1 Weakness; G43.909 Migraine, unspecified, not intractable, without status migrainosus; R07.9 Chest pain, unspecified; R10.13 Epigastric pain; K08.9 Disorder of teeth and supporting structures, unspecified; Z20.822 Contact with and (suspected) exposure to COVID-19; J35.1 Hypertrophy of tonsils; F12.90 Cannabis use, unspecified, uncomplicated; Z79.1 Long term (current) use of non-steroidal anti-inflammatories (NSAID); Z79.899 Other long term (current) drug therapy
CPT/HCPCS: 36415; 70496; 70498; 70553; 71046; 80053; 80307; 81001; 81025; 83605; 83690; 83735; 84443; 84484; 85025; 85610; 85730; 87040; 87086; 87088; 87636; 93005; 96361; 96365; 96367; 96372; 96375; 99285; A9270; G0378; G0379; J0131; J0696; J0780; J1200; J1885; J3030; J3250; J7030; Q9967

== ENCOUNTER 2023-02-27 11:30 | Emergency (ER) | payer MEDICAID, SELFPAY ==
[2023-02-27] VITALS (7 sets, daily range): BP systolic 111–138; BP diastolic 73–85; PULSE 97–117; RESP 14–21; TEMP 36.8; O2SAT 95–100
--- NOTE | ~2023-02-27 | XR_ITS ---
EXAMINATION: XR chest 2V DATE: 02/27/2023 12:41 INDICATION: Cough and fever TECHNIQUE: PA and lateral views of the chest are obtained. COMPARISON: 03/18/2022 FINDINGS: There are airspace opacities of the right upper lobe. No pleural effusion or pneumothorax. The cardiomediastinal silhouette is normal. The visualized bones and soft tissues are unremarkable. S urgical clips in the right upper quadrant are likely from prior cholecystectomy. IMPRESSION: 1. Right upper lobe airspace opacities, consistent with pneumonia. Reviewed, dictated and finalized at location B. SPLITTER
[2023-02-27] MEDS: ONDANSETRON INJ 4 MG/2 ML VIAL IV PUSH (12:49)
[2023-02-27] MEDS: SODIUM CHLORIDE 0.9% IV 1,000 ML 999 ML IV CONT (12:49)
[2023-02-27] MEDS: KETOROLAC 15 MG/ML VIAL (*BKC) IV PUSH (12:53)
[2023-02-27 13:10] LABS: Basophils Percent Auto 0.4 % (0.2-1.2); Eosinophils Absolute Auto 0.1 K/mm3 (0-0.3); Eosinophils Percent Auto 0.9 % (0-4.4); Hematocrit 34.4 % (37.0-47.0); Hemoglobin 11.5 g/dL (12.0-15.0); Immature Granulocyte Absolute 0.04 K/mm3 (0.00-0.031); Immature Granulocyte Percent A 0.4 % (0-0.5); Lymphocytes Absolute Auto 1.34 K/mm3 (0.9-3.2); Lymphocytes Percent Auto 13.3 % (18.3-44.2); Mean Corpuscular HGB Conc 33.4 g/dl (32-36); Mean Corpuscular Hemoglobin 30.7 pg (26-34); Mean Corpuscular Volume 91.7 fl (80-100); Mean Platelet Volume 10.9 fl (7.4-10.4); Monocytes Absolute Auto 0.6 K/mm3 (0.1-0.6); Monocytes Percent Auto 5.8 % (2.6-8.5); Neutrophils Percent Auto 79.2 % (45.5-73.1); Platelet Count Result 299 k/mm3 (150-375); Red Blood Count 3.75 M/mm3 (4.2-5.4); Red Cell Distribution Width 12.3 % (11.5-14.5)
[2023-02-27 13:13] LABS: Influenza A QL RT-PCR Negative (Negative); Influenza B QL RT-PCR Negative (Negative); RSV RNA, RT-PCR Negative (Negative); SARS-CoV-2 RNA PCR Negative (Negative)
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
[2023-02-27 13:23] LABS: Alanine Aminotransferase 13 U/L (6-35); Albumin Level 4.4 g/dL (3.5-5.1); Alkaline Phosphatase 84 U/L (38-126); Anion Gap 9 mmol/L (8-16); Aspartate Amino Transferase 18 U/L (14-36); Bilirubin,Total 0.6 mg/dL (0.2-1.3); Blood Urea Nitrogen 10 mg/dL (7-17); Calcium 9.3 mg/dL (8.4-10.2); Carbon Dioxide 27 mmol/L (22-30); Chloride 99 mmol/L (98-107); Estimated CRCL calculation 76 ml/min; Estimated Glomerular Filt Rate > 60; Glucose 103 mg/dL (65-110); Lipase 116 U/L (23-300); Potassium 3.7 mmol/L (3.4-5.0); Sodium 135 mmol/L (137-145)
[2023-02-27 13:35] LABS: D Dimer 0.64 ug/mL (<0.48)
[2023-02-27] MEDS: AZITHROMYCIN 250 MG TABLET 500 MG PO (13:43)
[2023-02-27] MEDS: MORPHINE SULFATE (*CRX) 2 MG/ML INJ IV PUSH (13:44)
== END 2023-02-27 15:21 | disposition home or self-care (01) ==
PROVIDERS: Emergency Provider Student in an Organized Health Care Education/Training Program; PCP Registered Nurse
DX: J18.9 Pneumonia, unspecified organism (principal); Z20.822 Contact with and (suspected) exposure to COVID-19; F41.9 Anxiety disorder, unspecified; F32.A Depression, unspecified; Z87.440 Personal history of urinary (tract) infections
CPT/HCPCS: 36415; 71046; 80053; 81025; 83690; 85025; 85380; 87637; 96361; 96374; 96375; 99284; A9270; J1885; J2270; J2405; J7030

== ENCOUNTER 2024-07-21 09:59 | Outpatient (CLI) | payer SELFPAY ==
--- NOTE | ~2024-07-21 | CT_ITS ---
Non-contrast Head CT History: Unilateral facial paresis COMPARISON: 03/18/2022 Technique: Axial non-contrast imaging of the brain was performed. Dose reduction technique was used on this scan by utilizing automated exposure control and iterative reconstruction technique. The dose -length product (DLP) was 605.33 mGy-cm. Findings: There is no evidence of intracranial hemorrhage, mass lesion, or acute infarct. Brain par enchyma appears normal. The ventricles and subarachnoid spaces are normal in size. The calvarium ap pears normal. The visualized paranasal sinuses and mastoid air cells are clear. Impression: No significant abnormality seen. Reviewed, dictated and finalized at location . Impression: No significant abnormality seen.
--- OUTSIDE RECORDS SUMMARY | 2024-07-21 11:02 | XMS_ITS | Patient Health Record ---
Author Organization [facility] As [facility] Address [address] [facility] [address] [place] [address] Care Team Providers Care Associate Manager Affiliate Marketing Name Role Phone Elsa TIWARI, Bernie Primary Care Provider Unavaila Fidelina Ríos Unavailable [phone] Migration, Provider Unavailable Unavailable Allergies Allergen (clinical drug ingredient) Drug/Non Drug Allergy documented on EMR Reaction Allergy Type Onset Date Status dicyclomine Dicyclomine HCl nausea and vomiting Drug Allergy Active Results Component Value Reference Range Notes UDT Reviewed date:11/04/2023 03:44:53 PM Interpretation: Performing Lab: Notes/Report: THC Negative 0 - 50 ng/ml Cocaine Negative 0 - 300 ng/ml Amphetamine Negative 0 - 1000 ng/ml Buprenorphine (BUP) Negative 0 - 10 ng/ml Secobarbital (Bar) Negative 0 - 300 ng/ml Oxazepam (BZO) Negative 0 - 300 ng/ml 0-poqlhtowbn-8,3-mxiwdyfs-0, 3-diphenylpyrrolidine (EDDP) Negative 0 - 300 ng/ml Methamphetamine (MET) Negative 0 - 1000 ng/ml Methylenedioxymethamphetamine (MDMA) Negative 0 - 500 ng/ml Morphine (MOP 300/[id number]) Negative 0 - 300 ng/ml Methadone (MTD) Negative 0 - 300 ng/ml Phencyclidine (PCP) Negative 0 - 25 ng/ml Nortriptyline (TCA) Negative 0 - 1000 ng/ml Oxycodone Negative 0 - 300 ng/ml x Negative 0 - 300 ng/ml Reason For Referral No Information Medications Medication SIG (Take, Route, Frequency, Duration) Notes Start Date End Date Status QUEtiapine Fumarate 200 MG 1 tablet at b edtime Oral Once a day for 30 days Active LORazepam 1 MG 1 tablet Oral three times a day for 30 days As needed 02/06/2024 Active hydrOXYzine HCl 25 MG 1 tablet Orally three times a day for 30 days As needed 04/07/2024 Active LORazepam 1 MG 1 tablet Orally thre e times daily for 30 days 07/03/2024 Active PARoxetine HCl 30 MG 2 tablet in the mor reginaldo Oral Once a day for 90 days Active hydrOXYzine HCl 10 MG 1 tablet Orally tw o times a day for 30 days 11/18/2023 Active QUEtiapine Fumarate 200 MG 1 tablet at b edtime Orally once a day for 30 days Active Social History Tobacco Use: Social History Observation Description Date Details (start date - stop date) Never Smoker NA - NA Sex Assigned At : Social History Observation Description Sex Assigned At Female Tobacco Control (Standard) Question Answer Notes Tobacco use: Nonsmoker AUDIT-C (Standard) Question Answer Notes Did you have a drink containing alcohol in the p ast year? No Problems Problem Type SNOMED Code ICD Code Onset Dates Problem Status W/U Status Risk Notes Problem Generalized anxiety disorder (12641572) REMINGTON (generalized anxiety disorder) (F41.1) Active confirmed Problem Mild recurrent major depression (77116812) MDD (major depressive disorder), recurrent episode, mild (F33.0) Active confirmed Problem Posttraumatic stress disorder (52789727) PTSD (post-traumati c stress disorder) (F43.10) Active confirmed Problem Chronic insomnia (034966495) Chronic insomnia (F51.04) Active confirmed Problem Panic disorder (930241062) Panic disorder (F41.0) Active confirmed Vital Signs Heart Rate 94 /min 11/04/2023 Height-cm 162.56 cm 11/04/2023 Blood pressure diastolic 90 mm Hg 11/04/2023 Weight-kg 63.23 kg 11/04/2023 Height 64 in 11/04/2023 Blood pressure systolic 164 mm Hg 11/04/2023 Weight 139.4 lbs 11/04/2023 BMI 23.93 kg/m2 11/04/2023 Encounters Encounter Location Date Provider Diagnosis [facility], [facility] [address] [address] 11/04/2023 Fidelina Aponte REMINGTON (generalized anxiety disorder) F41.1 ; Panic disorder F41.0 ; MDD (major depressive disorder), recurrent episode, mild F33.0 ; Chronic insomnia F51.04 and PTSD (post-traumatic stress disorder) F43.10 [facility], [facility] [address] [place] [address] 02/17/2024 Fidelina Fadi [facility], [facility] [address] [place] [address] 03/17/2024 Fidelina Fadi REMINGTON (generalized anxiety disorder) F41.1 ; Panic disorder F41.0 ; MDD (major depressive disorder), recurrent episode, mild F33.0 ; Chronic insomnia F51.04 and PTSD (post-traumatic stress disorder) F43.10 [facility], [facility] [address] [place] [address] 06/17/2024 Fidelina Fadi [facility], [facility] [address] [place] [address] 09/07/2023 Provider Migration [facility], [facility] [address] [place] [address] 09/08/2023 Provider Migration [facility], [facility] [address] [place] [address] 02/06/2024 Fidelina Fadi Panic disorder F41.0 [facility], [facility] [address] [place] [address] 11/14/2023 Fidelina Fadi [facility], [facility] [address] [place] [address] 11/14/2023 Fidelina [facility], [facility] [address] [place] [address] 11/14/2023 Fidelina Fadi [facility], [facility] [address] [place] [address] 11/18/2023 [facility] [address] [place] [address] 11/18/2023 Fidelina Fadi REMINGTON (generalized anxiety disorder) F41.1 [facility], [facility] [address] [place] [address] 12/16/2023 Fidelina Fadi Chronic insomnia F51.04 [facility], [facility] [address] [place] [address] 12/16/2023 Fidelina Fadi [facility], [facility] [address] [place] [address] 03/09/2024 Fidelina Fadi REMINGTON (generalized anxiety disorder) F41.1 ; Panic disorder F41.0 and Chronic insomnia F51.04 [facility] [address] [place] [address] 04/07/2024 Fidelina Fadi [facility], [facility] [address] [place] [address] 04/07/2024 Fidelina Fadi [facility], [facility] [address] [place] [address] 04/07/2024 Fidelina Fadi [facility], [facility] [address] [place] [address] 04/07/2024 Fidelina Fadi [facility] [address] [place] [address] 04/16/2024 Fidelina Fadi Chronic insomnia F51.04 [facility] [address] [place] [address] 07/03/2024 Fidelina Fadi REMINGTON (generalized anxiety disorder) F41.1 ; Panic disorder F41.0 and Chronic insomnia F51.04 [facility] [address] [place] [address] 07/08/2024 Fidelina Fadi Chronic insomnia F51.04 Assessments Encounter Date Diagnosis (ICD Code) Assessment Notes Treatment Notes Treatment Clinical Notes Section Notes 11/04/2023 REMINGTON (generalized anxiety disorder) (ICD-10 - F41.1) 02/06/2024 Panic disorder (ICD-10 - F41.0) 03/09/2024 REMINGTON (generalized anxiety disorder) (ICD-10 - F41.1) 11/04/2023 Panic disorder (ICD-10 - F41.0) 11/18/2023 REMINGTON (generalized anxiety disorder) (ICD-10 - F41.1) 12/16/2023 Chronic insomnia (ICD-10 - F51.04) 03/17/2024 REMINGTON (generalized anxiety disorder) (ICD-10 - F41.1) 04/16/2024 Chronic insomnia (ICD-10 - F51.04) 07/03/2024 REMINGTON (generalized anxiety disorder) (ICD-10 - F41.1) 07/08/2024 Chronic insomnia (ICD-10 - F51.04) 07/03/2024 Panic disorder (ICD-10 - F41.0) 03/17/2024 Panic disorder (ICD-10 - F41.0) 11/04/2023 MDD (major depressive disorder), recurrent episode, mild (ICD-10 - F33.0) 03/09/2024 Panic disorder (ICD-10 - F41.0) 11/04/2023 Chronic insomnia (ICD-10 - F51.04) 03/09/2024 Chronic insomnia (ICD-10 - F51.04) 03/17/2024 MDD (major depressive disorder), recurrent episode, mild (ICD-10 - F33.0) 07/03/2024 Chronic insomnia (ICD-10 - F51.04) 03/17/2024 Chronic insomnia (ICD-10 - F51.04) 11/04/2023 PTSD (post-traumatic stress disorder) (ICD-10 - F43.10) 03/17/2024 PTSD (post-traumatic stress disorder) (ICD-10 - F43.10) 11/04/2023 Other Previous patient of Dr Mazariegos, previously was stable on paxil 40mg qd, lorazepam 6mg total qd, clonazepam 1mg qd, quetiapine 300mg qHS. Currently off of all medications x 3 weeks aprox. Discussed restarting one benzo at lower dose, pt agreeable. Restart: -Paxil 40mg daily. -Restart lorazepam at lower dose- 1mg TID -Continue off of clonazepam -Restart quetiapine 300mg daily for insomnia. Patient educated on all medications including potential benefits, side effects, risks. Educated on proper dosing schedule and importance of compliance. [place] PDMP report checked and consistent with prescription history, no controlled substance prescriptions from other providers. Discussed counseling for PTSD symptoms, pt will consider once in new apt due to transportation. 03/17/2024 Other Start Buspar 5mg TID for anxiety Increase Paxil to 60mg daily Patient educated on all medications including potential benefits, side effects, risks. Educated on proper dosing schedule and importance of compliance. Plan Of Treatment Next Appt Details Provider Name:Fidelina Aponte, 08/05/2024 08:15:00 AM, [address], [place], [address], Insurance Providers Payer Name Payer Address Payer Phone Subscriber Number Group Number Insured Name Patient Relationship to Insured Coverage Start Date Coverage End Date [facility] [address] [place] [address] [id number] JH JUNIOR Self - patient is the insured Medical (General) History Medical History History ICD Code Past Psychiatric History: Anxiety Disord er abdominal aortic aneurysm: No atrial fibrillation: No chronic fatigue syndrome: No essential tremor: No hyperlipidemia: No hypertension: No Parkinson's disease: No restless leg syndrome: No stroke: No subdural hematoma: No type 1 diabetes mellitus: No type 2 diabetes mellitus: No vitamin B12 deficiency: No vitamin D deficiency: No
--- OUTSIDE RECORDS SUMMARY | 2024-07-21 11:02 | XMS_ITS | Clinical Summary ---
Author Organization [facility] Address [address] [place] [address] Care Team Providers Care Workers Compensation Legal Secretary Name Role Phone Bernie Hunter Primary Care Provider [phone] Allergies Active Allergy Reactions Criticality Noted Date Comments Doxycycline Nausea and Vomiting Low 07/12/2017 Prochlorperazine Unknown 04/25/2022 Medications LORazepam (ATIVAN) 2 MG tablet every 6 (six) hours as needed. Up to 3 times day 12/28/2021 Active ibuprofen (MOTRIN) 600 MG tablet Take 1 tablet (600 mg total) by mouth 3 (three) times daily as needed. FOR PAIN 12/09/2021 Active QUEtiapine (SEROQUEL) 200 MG tablet Take 1 tablet (200 mg total) by mouth nightly at bedtime. Active hydrOXYzine (ATARAX) 25 MG tablet Take 1 tablet (25 mg total) by mouth 3 (three) times daily as needed. 04/07/2024 Active PARoxetine (PAXIL) 40 MG tablet Take 1 tablet (40 mg total) by mouth every morning. FOR 14 DAYS 11/04/2023 Active SUMAtriptan (IMITREX) 100 MG tabletIndication s:Intractable chronic migraine without aura and without status migrainosus Take one half tablet at onset of headache, may repeat 2 hours. Do not exceed 2 tablets in 24 hours. 9 tablet 2 05/21/2024 Active LORazepam (ATIVAN) 1 MG tablet Take 1 tablet (1 mg total) by mouth 3 (three) times daily. 06/01/2024 Active Active Problems Problem Noted Date Diagnosed Date Anxiety Encounters Date Type Department Care Team Description 07/21/2024 8:00 AM CDT Office Visit [facility] Internal [address] [phone] Bernie Hunter APNP Pain (Pain on right side of face) 07/21/2024 Travel 06/11/2024 10:40 AM TUFTING MACHINE OPERATOR Telemedicine [address] [address] Bernie Hunter APNP Headache (Onset Saturday. Migraine medication didn't help. Fever, dry cough started yesterday. ) 06/11/2024 Travel 05/21/2024 10:00 AM TUFTING MACHINE OPERATOR Office Visit [address] [address] Bernie Hunter APNP Gi Problem (Pt had n/v/d Last Sat-Sat. Her GI sx have resolved. She does have a mild lingering headache, but would like to get a note clearing her to return to work.) 05/21/2024 Travel 05/19/[address] [address] Bernie Hunter APNP Work Excuse from Last 3 Months Immunizations Name Administration Dates Next Due Tdap (Adacel) 01/11/2022 Family History Medical History Relation Comments No Known Problems Brother 1 No Known Problems Brother 2 No Known Problems Daughter Cancer Father Hypertension Father Cancer Maternal Grandfather Cancer Maternal Grandmother Diabetes Maternal Grandmother Emphysema Maternal Grandmother No Known Problems Mother Stroke Paternal Grandfather No Known Problems Sister No Known Problems Son Relation Status Comments Brother 1 Alive Brother 2 Alive Daughter Alive Father Maternal Grandfather Maternal Grandmother Alive Mother Alive Paternal Grandfather Paternal Grandmother Sister Alive Son Alive Social History Tobacco Use Types Packs/Day Years Used Date Smoking Tobacco: Never Smokeless Tobacco: Never Tobacco Cessation:Counseling Given: Not Answered Alcohol Use Standard Drinks/Week Comments Not Currently 0 (1 standard drink = 0.6 oz pure alcohol) former drinker. last time was 2020. PHQ-2 Answer Date Recorded Patient Health Questionnaire-2 Score 0 07/21/2024 Comments No Sex and Gender Information Value Date Recorded Sex Assigned at Female 05/21/2024 10:15 AM TUFTING MACHINE OPERATOR Legal Sex Female 7:01 PM CDT Gender Identity Not on file Sexual Orientation Not on file Last Filed Vital Signs Vital Sign Reading Time Taken Comments Blood Pressure 104/68 07/21/2024 8:05 AM CDT Pulse 94 07/21/2024 8:05 AM CDT Temperature 36.6 C (97.8 F) 07/21/2024 8:05 AM CDT Respiratory Rate 16 07/21/2024 8:05 AM CDT Oxygen Saturation 98% 07/21/2024 8:05 AM CDT Inhaled Oxygen Concentration - - Weight 73.3 kg (161 lb 9.6 oz) 07/21/2024 8:05 A M CDT Height 162.6 cm (5' 4 ) 07/21/2024 8:05 AM CDT Body Mass Index 27.74 07/21/2024 8:05 AM CDT Plan of Treatment Upcoming Encounters Date Type Department Care Team (Late st Contact Info) Description 08/18/2024 8:00 AM CDT Office Visit [facility] Medical Group Family & Internal Medicine - [address] [phone] Bernie Hunter APNP [facility] [place] [address] Health Maintenance Due Date Last Done Comments Cervical Cancer Screening Pa p Smear (Age 30 to 64) Every 3 Years 1978 Hepatitis C 1996 Hepatitis B Vaccines (1 of 3 - 19+ 3-dose series) 1997 Cervical Cancer Screening Pa p with HPV Testing (Age 30 to 64) Every 5 Years 2008 Cervical Cancer Screening wi th HPV 2008 Mammogram Screening 2018 COVID-19 Vaccine (2023-2 5 season) 2023 08/09/2020, 07/19/2020 Annual Physical 03/05/2024 03/05/2023 Colorectal Cancer Screening Colonoscopy (10 Years) 07/26/2027 07/25/2017 DTaP, Tdap and Td Vaccines ( 2 - Td or Tdap) 01/12/2032 01/11/2022 PHQ-2 (Physician [place]) Completed 07/21/2024 HPV Vaccines Aged Out No longer eligi ble based on patient's age to complete this topic Meningococcal B Vaccine Aged Out No l onger eligible based on patient's age to complete this topic Meningococcal Vaccine Aged Out No irena herberth eligible based on patient's age to complete this topic Pneumococcal Vaccine: Pediatrics (0 to 5 Years) and At-Risk Patients (6 to 64 Years) Aged Out No longer eligible b ased on patient's age to complete this topic RSV Immunizations Under 20 Months Aged Out No longer eligible b ased on patient's age to complete this topic Procedures Procedure Name Priority Date/Time Associated Diagnosis Comments COLONOSCOPY GENERIC (SCAN ORDER) 07/25/2017 from Last 3 Months or Most Recently Relevant to Health Maintenance Results * COLONOSCOPY GENERIC (07/25/2017) 07/25/2017 [facility] Scanned SCANNING Final Resu lt from Last 3 Months or Most Recently Relevant to Health Maintenance Insurance [facility] Care Teams Workers Compensation Legal Secretary Relationship Specialty Start Date End Date Bernie Hunter APNP [address] [place] [id number] PCP - General NURSE PRACTITIONER 01/11/22
--- OUTSIDE RECORDS SUMMARY | 2024-07-21 11:02 | XMS_ITS | Encounter Summary ---
Author Organization [facility] Address [facility] [place] [address] Care Team Providers Care Television Maintenance Worker Name Role Phone Bernie Hunter Primary Care Provider [phone] Encounter Details Date Type Department Care Team (Latest Contact Info) Description 07/21/2024 Travel Social History Tobacco Use Types Packs/Day Years Used Date Smoking Tobacco: Never Smokeless Tobacco: Never Alcohol Use Standard Drinks/Week Comments Not Currently 0 (1 standard drink = 0.6 oz pure alcohol) former drinker. last time was 2020. PHQ-2 Answer Date Recorded Patient Health Questionnaire-2 Score 0 07/21/2024 Comments No Sex and Gender Information Value Date Recorded Sex Assigned at Female 05/21/2024 10:15 AM RIGGING ENGINEER Legal Sex Female 7:01 PM CDT Gender Identity Not on file Sexual Orientation Not on file documented as of this encounter Plan of Treatment Upcoming Encounters Date Type Department Care Team (Late st Contact Info) Description 08/18/2024 8:00 AM CDT Office Visit [facility] Medical Group Family & Internal Medicine - [address] [phone] Bernie Hunter APNP [address] [place] [phone] documented as of this encounter Visit Diagnoses Not on filedocumented in this encounter Additional Health Concerns Assessment Noted Time PHQ-9 Depression Total Score: 2 03/05/20 23 8:26 AM RIGGING ENGINEER documented as of this encounter Care Teams Television Maintenance Worker Relationship Specialty Start Date End Date Bernie Hunter APNP [address] [place] [id number] PCP - General NURSE PRACTITIONER 01/11/22 documented as of this encounter
--- OUTSIDE RECORDS SUMMARY | 2024-07-21 11:03 | XMS_ITS | Encounter Summary ---
Author Organization [facility] Address [facility] [place] [address] Care Team Providers Care Sewing Teacher Name Role Phone Bernie Hunter Primary Care Provider [phone] Reason for Referral * Imaging (Emergency) - New Request Specialty Diagnoses / Procedures Referred By Amisha mendez Referred To Contact RADIOLOGY Diagnoses Unilateral facial paresis Unilateral facial pain Facial weakness Procedures CT HEAD WO CON Bernie Hunter APNP [address] [place] [address] Phone: tel: fax: Referral ID Status Reason Start Date Expiration Date V isits Requested Visits Authorized [id number] New Request 07/21/2024 07/22/2025 1 1 * Imaging (Routine) - New Request Specialty Diagnoses / Procedures Referred By Amisha mendez Referred To Contact RADIOLOGY Diagnoses Screening for breast cancer Procedures MG SCREENING W JAMES TALYA DIGI Bernie Hunter APNP [address] [place] [address] Phone: tel: fax: Referral ID Status Reason Start Date Expiration Date V isits Requested Visits Authorized [id number] New Request 07/21/2024 09/20/2025 1 1 Reason for Visit * Reason Comments Pain Pain on right side o f face Encounter Details Date Type Department Care Team (Late st Contact Info) Description 07/21/2024 8:00 AM CDT Office Visit [facility] Medical Group Family & Internal Medicine - [place] [id number] [place] [phone] Bernie Hunter APNP [address] [place] [address] Pain (Pain on right side of face) Social History Tobacco Use Types Packs/Day Years Used Date Smoking Tobacco: Never Smokeless Tobacco: Never Alcohol Use Standard Drinks/Week Comments Not Currently 0 (1 standard drink = 0.6 oz pure alcohol) former drinker. last time was 2020. PHQ-2 Answer Date Recorded Patient Health Questionnaire-2 Score 0 07/21/2024 Comments No Sex and Gender Information Value Date Recorded Sex Assigned at Female 05/21/2024 10:15 AM SECONDS HANDLER Legal Sex Female 7:01 PM CDT Gender Identity Not on file Sexual Orientation Not on file documented as of this encounter Last Filed Vital Signs Vital Sign Reading [...] Mass Index 27.74 07/21/2024 8:05 AM CDT documented in this encounter Progress Notes * SANTO Garcia - 07/21/2024 8:00 AM CDT Images from the original note were not included. [facility] FAMILY AND INTERNAL MEDICINE OFFICE VISIT Reason for Visit: Pain (Pain on right side of face) History of Present Illness: 43 yo female here today with c/o what she thought was a MCKAY (migraine)--Saturday night--took sumatriptan x 2---went to bed, woke up on Sat AM with right sided facial pain and swelling. Mild numbness andright sided facial drooping started yesterday morning. She also has some associated dizziness--she notes symptoms have worsened over the last 2 weeks. She has had some tinnitus, fatigue, nausea. Denies any confusion, speech is clear. No extremity weakness. Denies any fever or chills. ROS: Review of Systems Constitutional: Negative for chills, fever and malaise/fatigue. HENT: Positive for tinnitus. Negative for congestion. Eyes: Negative for blurred vision and double vision. Respiratory: Negative for cough and shortness of breath. Cardiovascular: Negative for chest pain and palpitations. Gastrointestinal: Negative for abdominal pain, diarrhea, nausea and vomiting. Genitourinary: Negative for dysuria and urgency. Musculoskeletal: Negative for myalgias. Neurological: Positive for dizziness, sensory change and headaches. Negative for tingling, tremors,speech change, focal weakness, seizures, loss of consciousness and weakness. Medications: Current Outpatient Medications: hydrOXYzine (ATARAX) 25 MG tablet, Take 1 tablet (25 mg total) by mouth 3 (three) times daily as needed., Disp: , Rfl: ibuprofen (MOTRIN) 600 MG tablet, Take 1 tablet (600 mg total) by mouth 3 (three) times daily as needed. FOR PAIN, Disp: , Rfl: LORazepam (ATIVAN) 1 MG tablet, Take 1 tablet (1 mg total) by mouth 3 (three) times daily., Disp: ,Rfl: PARoxetine (PAXIL) 40 MG tablet, Take 1 tablet (40 mg total) by mouth every morning. FOR 14 DAYS, Disp: , Rfl: QUEtiapine (SEROQUEL) 200 MG tablet, Take 1 tablet (200 mg total) by mouth nightly at bedtime., Disp: , Rfl: SUMAtriptan (IMITREX) 100 MG tablet, Take one half tablet at onset of headache, may repeat 2 hours.Do not exceed 2 tablets in 24 hours., Disp: 9 tablet, Rfl: 2 LORazepam (ATIVAN) 2 MG tablet, every 6 (six) hours as needed. Up to 3 times day (Patient not taking: Reported on 07/21/2024), Disp: , Rfl: Allergies: Review of patient's allergies indicates: Allergen Reactions Prochlorperazine Unknown Doxycycline Nausea and Vomiting Medical History: Past Medical History: Diagnosis Date Anxiety Insomnia Surgical History: Past Surgical History: Procedure Laterality Date APPENDECTOMY CHOLECYSTECTOMY CYSTECTOMY near her tailbone REMOVAL OF TONSILS,<12 Y/O Social History: Social History Socioeconomic History Marital status: Tobacco Use Smoking status: Never Smokeless tobacco: Never Vaping Use Vaping status: Never Used Substance and Sexual Activity Alcohol use: Not Currently Comment: former drinker. last time was 2020. Drug use: Not Currently Types: Marijuana Comment: edible marijuana Family History: Family History Problem Relation Name Age of Onset No Known Problems Mother Cancer Father Hypertension Father No Known Problems Sister No Known Problems Brother No Known Problems Brother No Known Problems Daughter No Known Problems Son Cancer Maternal Grandmother Diabetes Maternal Grandmother Emphysema Maternal Grandmother Cancer Maternal Grandfather Stroke Paternal Grandfather PE: Physical Exam Vitals and nursing note reviewed. HENT: Head: Normocephalic and atraumatic. Right Ear: Tympanic membrane normal. Left Ear: Tympanic membrane normal. Mouth/Throat: Mouth: Mucous membranes are moist. Pharynx: No posterior oropharyngeal erythema. Eyes: General: No scleral icterus. Extraocular Movements: Extraocular movements intact. Conjunctiva/sclera: Conjunctivae normal. Pupils: Pupils are equal, round, and reactive to light. Neck: Trachea: No tracheal deviation. Cardiovascular: Rate and Rhythm: Normal rate and regular rhythm. Heart sounds: Normal heart sounds. Pulmonary: Effort: Pulmonary effort is normal. No respiratory distress. Breath sounds: Normal breath sounds. No stridor. No wheezing. Musculoskeletal: General: No deformity. Normal range of motion. Cervical back: Normal range of motion and neck supple. Skin: General: Skin is warm and dry. Findings: No erythema. Neurological: Mental Status: She is alert and oriented to person, place, and time. Gait: Gait is intact. Comments: Right sided facial drooping Tongue midline CN exam otherwise intact No extremity weakness noted Psychiatric: Mood and Affect: Mood and affect normal. Filed Vitals: 07/21/24 0805 BP: 104/68 Pulse: 94 Resp: 16 Temp: 97.8 ??F (36.6 ??C) TempSrc: Skin SpO2: 98% Weight: 73.3 kg (161 lb 9.6 oz) Height: 1.626 m (5' 4 ) PainSc: 7 Moderate Pain (0-10 Scale) Labs: Labs Reviewed Diagnoses/Impression: 1. Screening for breast cancer MG SCREENING W JAMES TALYA DIGI 2. Unilateral facial paresis CT HEAD WO CON 3. Unilateral facial pain CT HEAD WO CON 4. Facial weakness CT HEAD WO CON Recommendations and Plan: 1. Screening for breast cancer - MG SCREENING W JAMES TALYA DIGI; Future 2. Unilateral facial paresis - CT HEAD WO CON; Future 3. Unilateral facial pain - CT HEAD WO CON; Future 4. Facial weakness - CT HEAD WO CON; Future Suspect possible tooth infection versus sinusitis--however given her right sided facial weakness and numbness, need to rule out stroke. STAT CT ordered--more plan after results If negative--will consider abx for sinusitis I personally spent a total of 32 minutes on the day of the encounter. This includes [id number] and wdw-egtm-mn-face time I provided on the day of the encounter & excludes time spent performing separately reportable services. Orders Placed This Encounter MG SCREENING W JAMES TALYA DIGI CT HEAD WO CON Cannot display discharge medications since this is not an admission. PCP: SANTO Garcia 07/21/2024 documented in this encounter Plan of Treatment Upcoming Encounters Date Type Department Care Team (Late st Contact Info) Description 08/18/2024 8:00 AM CDT Office Visit [facility] Medical Group Family & Internal Medicine - [place] [address] [place] [address] Bernie Hunter APNP [facility] [place] [address] Scheduled Orders Name Type Priority Associated Diagnoses Orde r Schedule MG SCREENING W JAMES TALYA DIGI MAMMO Routine Encounter for screening mammogram for malignant neoplasm of breast Expected: 07/21/2024, Expires: 09/20/[address] CT HEAD WO CON CT STAT Unilateral facial paresis Unilateral facial pain Facial weakness Expected: 07/21/2024, Expires: 07/21/2025 documented as of this encounter Visit Diagnoses Diagnosis Unilateral facial paresis- Primary Encounter for screening mammogram for malignant neoplasm of breast Other screening mammogram Unilateral facial pain Atypical face pain Facial weakness documented in this encounter Additional Health Concerns Assessment Noted Time PHQ-9 Depression Total Score: 2 03/05/20 23 8:26 AM SECONDS HANDLER documented as of this encounter Care Teams Sewing Teacher Relationship Specialty Start Date End Date Bernie Hunter APNP [address] [place] [id number] PCP - General NURSE PRACTITIONER 01/11/22 documented as of this encounter
--- OUTSIDE RECORDS SUMMARY | 2024-07-21 11:03 | XMS_ITS ---
Author Organization [facility] X-Scan [facility] Address [facility] [address] [facility] [address] [place] [address] Care Team Providers Care Street Sprinkler Name Role Phone Elsa TIWARI, Bernie Primary Care Provider Fidelina Lopez [phone] REASON FOR VISIT New Refill Request Medications Medication SIG (Take, Route, Frequency, Duration) Notes Start Date End Date Status LORazepam 1 MG 1 tablet Orally thre e times daily for 30 days 07/03/2024 Active QUEtiapine Fumarate 200 MG 1 tablet at b edtime Orally once a day for 90 days Active PARoxetine HCl 30 MG 2 tablet in the mor reginaldo Oral Once a day for 90 days Active Social History Sex Assigned At : Social History Observation Description Sex Assigned At Female Encounters Encounter Location Date Provider Diagnosis [address] [facility] [address] [place] [address] 07/03/2024 Fidelina Aponte [place] (generalized anxiety disorder) F41.1 ; Panic disorder F41.0 and Chronic insomnia F51.04 Assessments Encounter Date Diagnosis (ICD Code) Assessment Notes Treatment Notes Treatment Clinical Notes Section Notes 07/03/2024 [place] (generalized anxiety disorder) (ICD-10 - F41.1) 07/03/2024 Panic disorder (ICD-10 - F41.0) 07/03/2024 Chronic insomnia (ICD-10 - F51.04) Plan Of Treatment Medication Medication Name Sig Start Date Stop Date Notes LORazepam 1 MG 1 tablet Orally thre e times daily for 30 days 07/03/2024 QUEtiapine Fumarate 200 MG 1 tablet at b edtime Orally once a day for 90 days PARoxetine HCl 30 MG 2 tablet in the mor reginaldo Oral Once a day for 90 days Next Appt Details Provider Name:Fidelina Aponte, 08/05/2024 08:15:00 AM, [address] [facility] [address], [place], [address], Progress Notes * TATIANA JUNIORDOB:1980 ( 43 yo F)Acc No.[id number]:07/03/2024 Patient: JH HUGHES :1980 A ge:43 Y S ex:Female Address:[address] [place] [address] , [address] , [place], [address] * Refills Refill PARoxetine HCl Tablet, 30 MG, Oral, 180, 2 tablet in the morning, Once a day, 90 days, Refills=0 Refill LORazepam Tablet, 1 MG, Orally, 90, 1 tablet, three times daily, 30 days, Refills=0 Refill QUEtiapine Fumarate Tablet, 200 MG, Orally, 90, 1 tablet at bedtime, once a day, 90 days, Refills=0 * true * Date: Generated for Scar del castillo/Eden/Wilianitting on: 0 07/21/2024 11:02 AM CDT
--- OUTSIDE RECORDS SUMMARY | 2024-07-21 11:03 | XMS_ITS ---
Author Organization [facility] [place] Address [facility] [facility] [address] [place] [address] Care Team Providers Care Roller Mill Tender Name Role Phone Elsa TIWARI, Bernie Primary Care Provider Fidelina Lopez [phone] REASON FOR VISIT 3 month f/u Social History Sex Assigned At : Social History Observation Description Sex Assigned At Female Encounters Encounter Location Date Provider Diagnosis [facility] [place] [id number] [facility] [address] [place] [address] 06/17/2024 Fidelina Aponte Plan Of Treatment Next Appt Details Provider Name:Fidelina Aponte, 08/05/2024 08:15:00 AM, [address] [facility] [address], [place], [address], Progress Notes * JH JUNIORDOB:1980 ( 43 yo F)Acc No.[id number]:06/17/2024 Patient: JH HUGHES Provider: JOSE E PRESTON :1980 A ge:43 Y S ex:Female Date:06/17/2024 Address:[address] , [facility] Pcp:Bernie Hunter NP Subjective: * Chief Complaints: * 1 . 3 month f/u. * Medical History: Objective: * Vitals: Assessment: Plan: * Treatment: * Procedure Codes: N S NO SHOW * Billing Information: * Visit Code: * Procedure Codes: NS NO SHOW. * ECT ECONOMIST Sign off status: Completed true * Provider: KATARZYNA PRESTONP Date: 0 06/17/2024 Generated for Scar del castillo/Eden/Kari on: 0 07/21/2024 11:02 AM CDT
--- OUTSIDE RECORDS SUMMARY | 2024-07-21 11:03 | XMS_ITS | Encounter Summary ---
Author Organization [facility] Address [facility] [place] [address] Care Team Providers Care Wallpaperer Name Role Phone Bernie Hunter Primary Care Provider [phone] Encounter Details Date Type Department Care Team (Late st Contact Info) Description 02/21/2023 [employer] Research Message [facility] Family Medicine - [place] [address] [place] [address] [facility] Provider Screening Social History Tobacco Use Types Packs/Day Years Used Date Smoking Tobacco: Never Smokeless Tobacco: Never Alcohol Use Standard Drinks/Week Comments Not Currently 0 (1 standard drink = 0.6 oz pure alcohol) former drinker. last time was 2020. PHQ-2 Answer Date Recorded Patient Health Questionnaire-2 Score 1 04/25/2022 Comments Unknown Sex and Gender Information Value Date Recorded Sex Assigned at Female 05/21/2024 10:15 AM GROCERY DELIVERER Legal Sex Female 7:01 PM CDT Gender Identity Not on file Sexual Orientation Not on file documented as of this encounter Plan of Treatment Upcoming Encounters Date Type Department Care Team (Late st Contact Info) Description 08/18/2024 8:00 AM CDT Office Visit [facility] Medical Group Family & Internal Medicine [address] [phone] Bernie Hunter APNP [address] [place] [address] documented as of this encounter Visit Diagnoses Not on filedocumented in this encounter Additional Health Concerns Infection Onset Date Last Indicated Resolved Time COVID-19 Rule Out 06/11/2024 06/11/2024 06/11/2024 11:24 AM GROCERY DELIVERER Assessment Noted Time PHQ-9 Depression Total Score: 8 04/25/19 23 10:13 AM GROCERY DELIVERER documented as of this encounter Care Teams Wallpaperer Relationship Specialty Start Date End Date Bernie Hunter APNP [address] [place] [id number] PCP - General NURSE PRACTITIONER 01/11/22 documented as of this encounter
--- OUTSIDE RECORDS SUMMARY | 2024-07-21 11:03 | XMS_ITS ---
[facility] Address [facility] [place] [address] Care Team Providers Care Spring Fitter Name Role Phone Elsa TIWARI, Bernie Primary Care Provider Fidelina Lopez [phone] REASON FOR VISIT New Refill Request Medications Medication SIG (Take, Route, Frequency, Duration) Notes Start Date End Date Status QUEtiapine Fumarate 200 MG 1 tablet at b edtime Orally once a day for 30 days Active Social History Sex Assigned At : Social History Observation Description Sex Assigned At Female Encounters Encounter Location Date Provider Diagnosis [facility] [address] [place] [address] 07/08/2024 Fidelina Aponte Chronic insomnia F51.04 Assessments Encounter Date Diagnosis (ICD Code) Assessment Notes Treatment Notes Treatment Clinical Notes Section Notes 07/08/2024 Chronic insomnia (ICD-10 - F51.04) Plan Of Treatment Medication Medication Name Sig Start Date Stop Date Notes QUEtiapine Fumarate 200 MG 1 tablet at b edtime Orally once a day for 30 days Next Appt Details Provider Name:Fidelina Aponte, 08/05/2024 08:15:00 AM, [address], [place], [address], Progress Notes * JH JUNIORDOB:1980 ( 43 yo F)Acc No.[id number]:07/08/2024 Patient: JH HUGHES :1980 A ge:43 Y S ex:Female Address[address] [place], [address] * Refills Refill QUEtiapine Fumarate Tablet, 200 MG, Orally, 30, 1 tablet at bedtime, once a day, 30 days, Refills=0 * true * Date: Generated for Scar del castillo/Eden/Kari on: 0 07/21/2024 07:48 AM CDT
== END 2024-07-21 10:00 | disposition home or self-care (01) ==
LOC: ANHIMG 10:09
PROVIDERS: PCP Registered Nurse; Visit Provider Registered Nurse
DX: G51.0 Bell's palsy (principal); R51.9 Headache, unspecified
CPT/HCPCS: 70450

== ENCOUNTER 2024-10-09 15:33 | Outpatient (CLI) | payer OTHER, SELFPAY ==
--- NOTE | ~2024-10-09 | MM_ITS ---
EXAMINATION: MM screening ailyn BI w himanshu HISTORY: Screening TECHNIQUE: Craniocaudal and mediolateral oblique 3-D tomosynthesis images were obtained and synthetic 2-D images were generated. CAD analysis was submitted and interpreted. COMPARISON: No prior mammogram is available for comparison at this institution. BREAST PARENCHYMAL COMPOSITION: Dense: The breasts are heterogeneously dense, which may obscure small masses FINDINGS: There is an obscured mass in the upper outer quadrant of the right breast, middle third. No mammographic evidence for malignancy in the left breast. IMPRESSION: 1. Small low-density mass upper outer quadrant of the right breast, middle third. 2. Additional mammographic views and possible breast ultrasound are recommended. BI-RADS Category 0: Incomplete: Needs additional imaging evaluation. Reviewed, dictated and finalized at location A. IMPRESSION: 1. Small low-density mass upper outer quadrant of the right breast, middle thir d. 2. Additional mammographic views and possible breast ultrasound are recommended . BI-RADS Category 0: Incomplete: Needs additional imaging evaluation.
== END 2024-10-09 15:34 | disposition home or self-care (01) ==
LOC: ANHIMG 15:35
PROVIDERS: PCP Registered Nurse; Visit Provider Registered Nurse
DX: Z12.31 Encounter for screening mammogram for malignant neoplasm of breast (principal); R92.8 Other abnormal and inconclusive findings on diagnostic imaging of breast
CPT/HCPCS: 77063; 77067

== ENCOUNTER 2024-12-09 12:48 | Outpatient (CLI) | payer OTHER, SELFPAY ==
--- NOTE | ~2024-12-09 | MMUS_ITS ---
EXAMINATION: MM diagnostic ailyn RT w himanshu, US breast RT limited HISTORY: Right breast mass TECHNIQUE: Additional 3-D tomosynthesis images of the right breast were performed and synthetic 2-D images were generated. CAD analysis was submitted and interpreted. High resolution limited right breast ultrasound was performed. COMPARISON: 10/09/2024 BREAST PARENCHYMAL COMPOSITION:Dense: The breasts are heterogeneously dense, which may obscure small masses. FINDINGS: MAMMOGRAPHIC FINDINGS: Spot compression views confirm a low-density circumscribed mass in the central subareolar right breast measuring 9 mm in diameter. ULTRASOUND: At the 12:00 position right breast, subareolar region, there is an 8 x 9 x 5 mm ovoid hypoechoic circumscribed mass, wider than tall. IMPRESSION: 8 x 9 x 5 mm ovoid mass, as detailed above, most likely benign. Six-month follow-up ultrasound recommended to reassess. BI-RADS category 3, probably benign findings. Reviewed, dictated and finalized at location M. IMPRESSION: 8 x 9 x 5 mm ovoid mass, as detailed above, most likely benign. Six-month foll ow-up ultrasound recommended to reassess. BI-RADS category 3, probably benign findings.
== END 2024-12-09 12:49 | disposition home or self-care (01) ==
LOC: ANHFOHIMG 12:56
PROVIDERS: PCP Registered Nurse; Visit Provider Registered Nurse
DX: N63.41 Unspecified lump in right breast, subareolar (principal)
CPT/HCPCS: 76642; 77061; 77065; G0279